=== PATIENT | female | born 1970 | race Caucasian/White ===

== ENCOUNTER 2017-08-24 12:30 | Day surgery (SDC) | payer OTHER ==
[2017-08-24 12:44] VITALS: BMI 22.8
[2017-08-24] MEDS ORDERED: LIDOCAINE HCL/PF 2% SDV 5ML VIAL ONE (13:56)
[2017-08-24] MEDS ORDERED: PROPOFOL 20 ML ONE (13:56)
[2017-08-24 14:49] VITALS: TEMP 97.7
[2017-08-24 16:15] VITALS: BP 116/91; PULSE 76
--- NOTE | 2017-08-28 18:44 | PATH ---
Surgical Pathology Report Patient Name: DILAN VINSON [facility]. Rec. #: [id number] /Age/Gender: 1970 (Age: 47) / F Account: [id number] Location: ASU-ENDOSCOPY Taken: 08/24/2017 Received: 08/27/2017 Reported: 08/28/2017 Physicians: Marcelo Saenz M.D. Specimen(s) Received BX RECTUM Clinical History Constipation, family history of colon cancer Proctitis, redundant colon Final Diagnosis RECTUM, BIOPSY: COLONIC MUCOSA WITH PROMINENT LYMPHOID AGGREGATE. Electronically Signed Rebeca Granda M.D. Gross Description Received in formalin, labeled "rectum" are 2 german, irregular portions of soft tissue measuring 0.2 and 0.3 cm. in greatest dimension. The specimens are submitted in toto in one cassette. 08/27/201708/27/2017
== END 2017-08-24 16:00 | disposition home or self-care (01) ==
LOC: JASU-ENDO 12:30
PROVIDERS: ATTEND Internal Medicine Gastroenterology
PROC: 0DBP8ZX Excision of Rectum, Via Natural or Artificial Opening Endoscopic, Diagnostic (ICD-10-PCS; principal; 2017-08-24 13:30)
DX: Z12.11 Encounter for screening for malignant neoplasm of colon (principal); Z80.0 Family history of malignant neoplasm of digestive organs; K64.8 Other hemorrhoids; K63.89 Other specified diseases of intestine; K62.89 Other specified diseases of anus and rectum
CPT/HCPCS: 84703; 88305-TC

== ENCOUNTER 2019-05-16 10:09 | Inpatient (IN) | payer OTHER ==
--- NOTE | 2019-05-16 11:26 | PDOC ---
History of Present Illness - General Chief Complaint: Psychiatric Stated Complaint: ANXIETY Time Seen by Provider: 05/16/19 10:38 History Source: Patient, Sibling Exam Limitations: No Limitations Past History - Past Medical History Allergies/Adverse Reactions: Allergies Allergy/AdvReac Type Severity Reaction Status Date / Time povidone-iodine Allergy Severe Rash Verified 08/24/17 14:04 [From Betadine] soap [From Betadine] Allergy Severe Rash Verified 08/24/17 14:04 diphenhydramine HCl Allergy Unknown Verified 08/24/17 14:04 [From Benadryl] carbamazepine [From Tegretol] Allergy STOMACH Verified 08/24/17 14:04 PAIN phenytoin sodium extended Allergy Rash Verified 08/24/17 14:04 [From Dilantin] Home Medications: Ambulatory Orders Divalproex [Depakote -] 250 mg PO HS 01/07/15 Nadolol 40 mg PO HS 01/07/15 Primidone [Mysoline] 250 mg PO BID 01/07/15 Cetirizine HCl [Zyrtec -] 10 mg PO HS 03/03/15 Ranitidine [Zantac -] 150 mg PO BID #30 tablet 05/29/16 Albuterol Sulfate [Proair Respiclick] 90 mcg IH PRN PRN 08/24/17 Famotidine [Pepcid -] 20 mg PO DAILY 08/24/17 Fluticasone Prop 0.05% Nasal [Flonase -] 1 - 2 spray NS BID 08/24/17 Wheat Dextrin [Benefiber] 1 each PO DAILY 08/24/17 Anemia: No Asthma: Yes Cancer: Yes (LEFT BREAST CANCER 10/2014) Cardiac Disorders: No CVA: No COPD: No CHF: No Dementia: No Diabetes: No GI Disorders: Yes (gerd) Disorders: No HTN: No Hypercholesterolemia: No Liver Disease: No Seizures: Yes Thyroid Disease: No - Surgical History Abdominal Surgery: No Appendectomy: No Cardiac Surgery: No Cholecystectomy: No Lung Surgery: No Neurologic Surgery: No Orthopedic Surgery: No - Immunization History Immunization Up to Date: Yes - Suicide/Smoking/Psychosocial Hx Smoking History: Never smoked Have you smoked in the past 12 months: No Information on smoking cessation initiated: No Hx Alcohol Use: No Drug/Substance Use Hx: No Substance Use Type: None Hx Substance Use Treatment: No *Physical Exam - Vital Signs Last Vital Signs Temp Pulse Resp BP Pulse Ox 98.4 F 75 18 154/96 100 05/16/19 10:11 05/16/19 10:11 05/16/19 10:11 05/16/19 10:11 05/16/19 10:11 - Physical Exam General Appearance: No: Apparent Distress Respiratory/Chest: positive: Lungs Clear, Normal Breath Sounds. negative: Respiratory Distress Cardiovascular: positive: Regular Rhythm, Regular Rate, S1, S2. negative: Murmur Gastrointestinal/Abdominal: positive: Normal Bowel Sounds, Soft. negative: Tender, Distended, Guarding, Rebound Neurologic: positive: Fully Oriented, Alert, Other (Quiet, withdrawn, looks away ) ED Treatment Course - LABORATORY CBC & Chemistry Diagram: 05/16/19 11:40 05/16/19 11:40 - RADIOLOGY Radiology Studies Ordered: Category Date Time Status HEAD CT WITHOUT CONTRAST [CT] Stat CT Scan 05/16/19 11:03 Ordered Medical Decision Making - Medical Decision Making 48 y/o F hx of legally blind since , seizure (on Mysoline and Depakote), L sided breast CA s/p lumpectomy, XRT and chemo (in remission since 2014), hypothyroidism, migraines (on Nadolol) presents with her sister due to hearing voices from last night. Per sister, patient has also been acting more paranoid today. Sister mentions that they recently moved from [place] last month and since then has noticed the patient has been quieter and not like her usual self. However, hallucinations were just noted last night. Denies prior psych hx. Patient lives with sister, brother and sister's on. Mother and father lives [facility]. Denies alcohol or drug use. Denies S/H ideation. Patient very quiet on exam and does not answer many questions. Mood disorder Plan: Labs, urine tox, CT head D/W Dr. Castañeda - will come see patient this afternoon 05/16/19 11:22 Labs reviewed TSH elevated (sister states she is already aware of this and Synthroid dose is pending readjustment by PCP) Utox shows +barbiturate likely as patient is on Mysoline CT head with no acute findings Case also d/w Dr. Finch, who is patient's neurologist - states patient has not had any readjustment in her meds for years and believes that is unlikely this is related to her medications; does not believe this is anything neurologically related; agrees with psych evaluation; of note, he does mention that patient has seemed a bit sad since her mother few years ago D/W sister - states no chance that patient could have overdosed on any of her medications as she checks herself and gives her the medication Sister (Latisha) - contact number [phone] Castañeda, who states he will come in around 5 PM to see patient 05/16/19 15:45 Patient pending evaluation by psych Signed out to BRIGITTE Dee 05/16/19 16:18 *DC/Admit/Observation/Transfer Diagnosis at time of Disposition: Hallucinations - Referrals - Patient Instructions - Post Discharge Activity
[2019-05-16 12:16] LABS: COCAINE, UR NEGATIVE ng/ml (CUTOFF=300); METHADONE, UR NEGATIVE ng/ml (CUTOFF=300); OPIATES, URI NEGATIVE ng/ml (CUTOFF=300); PHENCYCLIDINE,URINE NEGATIVE ng/ml (CUTOFF=25); URINE AMPHETAMINES NEGATIVE ng/ml (CUTOFF=500); URINE BENZODIAZEPINES NEGATIVE ng/ml (CUTOFF=200)
[2019-05-16 12:29] LABS: ALBUMIN 4.4 g/dl (3.4-5.0); BILIRUBIN,TOTAL 0.4 mg/dL (0.2-1); BLOOD UREA NITROGEN 12.4 mg/dL (7-18); CALCIUM 9.3 mg/dL (8.5-10.1); CREATININE 0.7 mg/dL (0.55-1.3); POTASSIUM 4.1 mmol/L (3.5-5.1); TOT PROT 8.3 g/dl (6.4-8.2); URINE BARBITURATES POSITIVE ng/ml (CUTOFF=200)
[2019-05-16 13:09] LABS: BASO % 0.6 % (0-2.0); EOS % 0.3 % (0-4.5); HEMATOCRIT 43.7 % (32.4-45.2); HEMOGLOBIN 14.9 GM/dL (10.7-15.3); LYMPH % 22.9 % (8-40); MCH 31.4 pg (25.7-33.7); MCHC 34.2 g/dl (32.0-36.0); MEAN CELL VOLUME 91.9 fl (80-96); MEAN PLT VOLUME 9.1 fl (7.5-11.1); MONO % 7.8 % (3.8-10.2); NEUT % 68.4 % (42.8-82.8); PLATELET COUNT 262 K/MM3 (134-434); RBC 4.76 M/mm3 (3.60-5.2); WHITE BLOOD COUNT 6.9 K/mm3 (4.0-10.0)
--- NOTE | 2019-05-16 14:24 | PDOC ---
*Physical Exam - Vital Signs Last Vital Signs Temp Pulse Resp BP Pulse Ox 98.4 F 75 18 154/96 100 05/16/19 10:11 05/16/19 10:11 05/16/19 10:11 05/16/19 10:11 05/16/19 10:11 - Physical Exam General Appearance: Yes: Nourished Neck: positive: Trachea midline Respiratory/Chest: positive: Lungs Clear, Normal Breath Sounds Cardiovascular: positive: Regular Rhythm, Regular Rate, S1, S2 Female Pelvic Exam: positive: normal external exam Gastrointestinal/Abdominal: positive: Normal Bowel Sounds, Flat, Soft Musculoskeletal: positive: Normal Inspection Extremity: positive: Normal Capillary Refill, Normal Inspection, Normal Range of Motion Integumentary: positive: Normal Color, Dry, Warm Neurologic: positive: Fully Oriented, Alert, Finger to Nose, Other (odd affect, resting tremor, finger to nose normal.) Heart Score/ECG Review #1 General ECG Interpretation: Sinus Rhythm, Normal Rate (70), Normal Intervals, No acute ischemic changes ED Treatment Course - LABORATORY CBC & Chemistry Diagram: 05/16/19 11:40 05/16/19 11:40 - ADDITIONAL ORDERS Additional order review: Laboratory Results 05/16/19 05/16/19 05/16/19 11:40 11:40 11:40 Sodium 139 Potassium 4.1 Chloride 102 Carbon Dioxide 29 Anion Gap 8 BUN 12.4 Creatinine 0.7 Est GFR (CKD-EPI)AfAm 117.09 Est GFR (CKD-EPI)NonAf 101.02 Random Glucose 82 Calcium 9.3 Total Bilirubin 0.4 AST 12 L ALT 24 Alkaline Phosphatase 80 Total Protein 8.3 H Albumin 4.4 TSH 4.18 H Salicylates Opiates Screen Negative Methadone Screen Negative Acetaminophen Barbiturate Screen Positive A* Phencyclidine Screen Negative Ur Amphetamines Screen Negative MDMA (Ecstasy) Screen Negative Benzodiazepines Screen Negative Cocaine Screen Negative U Marijuana (THC) Screen Negative 05/16/19 05/16/19 11:12 11:12 Sodium Potassium Chloride Carbon Dioxide Anion Gap BUN Creatinine Est GFR (CKD-EPI)AfAm Est GFR (CKD-EPI)NonAf Random Glucose Calcium Total Bilirubin AST ALT Alkaline Phosphatase Total Protein Albumin TSH Salicylates 2.0 L Opiates Screen Methadone Screen Acetaminophen < 5.0 L Barbiturate Screen Phencyclidine Screen Ur Amphetamines Screen MDMA (Ecstasy) Screen Benzodiazepines Screen Cocaine Screen U Marijuana (THC) Screen 05/16/19 11:40 RBC 4.76 MCV 91.9 MCHC 34.2 RDW 13.0 MPV 9.1 Neutrophils % 68.4 Lymphocytes % 22.9 Monocytes % 7.8 Eosinophils % 0.3 D Basophils % 0.6 Medical Decision Making - Medical Decision Making 05/16/19 14:20 48 yo F wtih ho epilepsy, brain injury related to , on depakote and phenbarb equivalent med, here with c/o hallucinations change to behavior. no recent medication doses. no overdose. denies thoughts of self harm and harm to others. no si no hi. no h;o prior psych diangosis. no h/o depression. no famliy ho schizophrenia or depression. pt is here with family who noted she is more withdrawn. hallucinations were auditory. hearing voices. no h/o prior hallucinations. on exam pt awake calm alert. lungs clear heart rrr no mrg abd soft nt nd nuero pt with baseline tremor, finger to nose normal. differential psychosis, brain mass ( ho breast ca ) electrolyte abnoramlity, ingestion, toxicity from depakote or phenobarb. 05/16/19 14:[address] fontana consulted. depakote and phenobarb levels pending. 05/16/19 14:49 d/w dr cruz. no recent med changes. ct head unchanged from prior. ua pending. u tox pos for phenobarbs. will add rpr, b12 and folate. *DC/Admit/Observation/Transfer Diagnosis at time of Disposition: Hallucinations, Altered mental status - Referrals Referrals: Dayan Land MD [Primary Care Provider] - - Patient Instructions - Post Discharge Activity
--- NOTE | 2019-05-16 16:24 | CONSULT ---
Consult - text type - Consultation Consultation Note: NEUROLOGY CONSULT GREATLY APPRECIATED: Events reviewed and discussed with Soila Leon PA. Polly is well-known to our service with Static encephalopathy CP); chronic, mild , hemiparesis,; Migraines, and Seizure disorder.. Last seen in office 02/17/19. This 48 yo RH woman's migraine headaches and seizure disorder are well controlled on nadolol 40, VPA ER 250, and primidone 250 BID. No change in meds x years PMHX: breast CA s/p chemo and RT, chronic tinnitus, thyroid goiter. Seen in ED and brought by her sister due to her self-reports of "hearing voices " last night. She is unable to recall what they were saying, but denies any thoughts to harm herself or others. She admits she recently moved into a new building last month with her sister and brother and has not been sleeping well due to hearing "footsteps" of neighbors. Lost her mother and lifetime caregiver about [address] (reviewed): Unchanged from recent MRI. Large chronic L occiptal encephalomalacia/arachnoid cyst confluent with lateral ventricle. Some L cerebral atrophy. Small R occipital encephalomalacia as well. B12= 454; TSH 4.18; VPA= 25.9 CURTIS: Cor reg. Neck supple. NEURO: Awake, alert, oriented x 3. Easily distractable with poor eye contact. ? Hallucinating. CNII-CNXII: Severe nystagmus L > R. Full castellanos. No facial. Motor: No drift or tremor. Decreased GUTIERREZ's. Strength normal. Reflexes normal. Plantars downgoing. Coordination: No FTN dystaxia. Sensation: Normal to vibration. Gait: deferred Impression: 1. Possible depression with psychotic features (strongly doubt this a manifestation of CP or seizures). 2. Seizure disorder 3. Migraine Headaches Suggest: Consider reducing nadolol to 20 mg qd Would then increase Depakote to 500 mg BID Continue Primidone 250 mg BID Await Psychiatry consultation. MRI of brain (C-) Thank you very much, Michael Finch MD
--- NOTE | 2019-05-16 17:08 | PDOC ---
*Physical Exam - Vital Signs Last Vital Signs Temp Pulse Resp BP Pulse Ox 98.4 F 75 18 154/96 100 05/16/19 10:11 05/16/19 10:11 05/16/19 10:11 05/16/19 10:11 05/16/19 10:11 - Physical Exam General Appearance: Yes: Appropriately Dressed Integumentary: positive: Warm Neurologic: positive: Alert ED Treatment Course - LABORATORY CBC & Chemistry Diagram: 05/16/19 11:40 05/16/19 11:40 - ADDITIONAL ORDERS Additional order review: Laboratory Results 05/16/19 05/16/19 05/16/19 14:00 11:40 11:40 Sodium Potassium Chloride Carbon Dioxide Anion Gap BUN Creatinine Est GFR (CKD-EPI)AfAm Est GFR (CKD-EPI)NonAf Random Glucose Calcium Total Bilirubin AST ALT Alkaline Phosphatase Total Protein Albumin Vitamin B12 Serum Folate TSH 4.18 H Salicylates Opiates Screen Negative Methadone Screen Negative Acetaminophen Barbiturate Screen Positive A* Valproic Acid 25.9 L Phencyclidine Screen Negative Ur Amphetamines Screen Negative MDMA (Ecstasy) Screen Negative Benzodiazepines Screen Negative Cocaine Screen Negative U Marijuana (THC) Screen Negative 05/16/19 05/16/19 05/16/19 11:40 11:12 11:12 Sodium 139 Potassium 4.1 Chloride 102 Carbon Dioxide 29 Anion Gap 8 BUN 12.4 Creatinine 0.7 Est GFR (CKD-EPI)AfAm 117.09 Est GFR (CKD-EPI)NonAf 101.02 Random Glucose 82 Calcium 9.3 Total Bilirubin 0.4 AST 12 L ALT 24 Alkaline Phosphatase 80 Total Protein 8.3 H Albumin 4.4 Vitamin B12 454 Serum Folate 31 H TSH Salicylates 2.0 L Opiates Screen Methadone Screen Acetaminophen < 5.0 L Barbiturate Screen Valproic Acid Phencyclidine Screen Ur Amphetamines Screen MDMA (Ecstasy) Screen Benzodiazepines Screen Cocaine Screen U Marijuana (THC) Screen 05/16/19 11:40 RBC 4.76 MCV 91.9 MCHC 34.2 RDW 13.0 MPV 9.1 Neutrophils % 68.4 Lymphocytes % 22.9 Monocytes % 7.8 Eosinophils % 0.3 D Basophils % 0.6 Medical Decision Making - Medical Decision Making 05/16/19 18:58 PATIENT Signed out to Maren Sanchez admitted under Dr. bhardwaj. Patient seen by Dr. florian ( see note) and Dr. Finch (see note) *DC/Admit/Observation/Transfer Diagnosis at time of Disposition: Hallucinations Altered mental status Qualifiers: Altered mental status type: delirium Qualified Code(s): R41.0 - Disorientation , unspecified - Discharge Dispostion Decision to Admit order: Yes - Referrals Referrals: Dayan Bhardwaj MD [Primary Care Provider] - - Patient Instructions - Post Discharge Activity
[2019-05-16] MEDS ORDERED: OLANZapine 2.5 MG TABLET PO ONE (17:33)
--- NOTE | 2019-05-16 17:40 | CON.PSY ---
Psychiatry Consult Chief Complaint: 48 Ye5a old female brought to ER by siblings for an acute onset of Auditory Hallucinations and mild paranoid ideas> she hasno history of any previous Psychg Illness. Recently family moved tos a new Home. Has been sleeping poorly. History of Breast CA and Migraine Head aches. Symptoms: reports: Hallucinations, Paranoia - Previous Psychiatric Treatment Outpatient: None Inpatient: None - Previous Substance Abuse Treatment Outpatient: None Inpatient: None - Current Medications Current Medications: Active Medications Olanzapine (Zyprexa -) 2.5 mg PO ONCE ONE Stop: 05/16/19 17:34 - Allergies Allergies: Allergies Allergy/AdvReac Type Severity Reaction Status Date / Time povidone-iodine Allergy Severe Rash Verified 08/24/17 14:04 [From Betadine] soap [From Betadine] Allergy Severe Rash Verified 08/24/17 14:04 diphenhydramine HCl Allergy Unknown Verified 08/24/17 14:04 [From Benadryl] carbamazepine [From Tegretol] Allergy STOMACH Verified 08/24/17 14:04 PAIN phenytoin sodium extended Allergy Rash Verified 08/24/17 14:04 [From Dilantin] - Current Living Status Usual Living Arrangement: With Significant Other - Current Mental Status Evaluation Appearance: Well Groomed Attitude: Cooperative - Affect Affect: Constrictive Appropriateness: Appropriate to Content - Mood Mood: Depressed - Speech/Language Expressive: Coherent - Psychomotor Activity Psychomotor Activity: Normal - Thought Process Thought Process: Intact - Thought Content Hallucinations: Present Type: Auditory Type: Persectory - Self Perception Self Perception: No Impairment - Cognition Attention: Alert Orientation: Time Memory, Immediate Recall: Intact Memory, Short Term: 3/3 Memory, Remote with Promptin/3 - Concentration Serial Sevens Intact: Yes Simple Calculations Intact: Yes - Abstraction Proverb Interpretation: Intact - Insight Insight: Intact - Impulse Control Impulse Control: Good Control - Suicidal Ideation Suicidal Ideation: No Assessment/Plan 1) Start Zyprexa 5 mg po hs for hallucinations and Paranoia.
[2019-05-16] MEDS ORDERED: OLANZapine 5 MG TABLET PO STA (17:41)
[2019-05-16] MEDS ORDERED: OLANZapine 5 MG TABLET PO ONE (17:43)
[2019-05-16] MEDS ORDERED: OLANZapine 10 MG TABLET ONE (19:06)
[2019-05-16 21:42] LABS: EPI CELLS 1.3 /HPF (0-5/HPF); HYALINE CASTS 0 /lpf (0-8); URINE APPEARANCE CLEAR; URINE BACTERIA 3.9 /hpf (NEGATIVE); URINE BILIRUBIN NEGATIVE (NEGATIVE); URINE COLOR YELLOW; URINE GLUCOSE (UA) NEGATIVE (NEGATIVE); URINE KETONE NEGATIVE (NEGATIVE); URINE LEUK ESTERASE TRACE (NEGATIVE); URINE NITRITE NEGATIVE (NEGATIVE); URINE PROTEIN NEGATIVE (NEGATIVE); URINE RBC 2 /hpf (0-4); URINE UROBILINOGEN 0.2 mg/dL (0.2-1.0); URINE WBC 3 /hpf (0-5)
[2019-05-16] MEDS ORDERED: ALBUTEROL SO4 8 GM HFA INHALER IH PRN (21:50)
--- NOTE | 2019-05-16 21:59 | HP ---
CHIEF COMPLAINT: Auditory hallucinations PCP: Dr. Christina HISTORY OF PRESENT ILLNESS: 48 year old female with PMHX of epilepsy, brain injury related to , Asthma, GERD, hypothyroidism, legal blind since and h/o breast ca; brought to ER by siblings for acute onset of Auditory Hallucinations ( hearing voices). Sister states that they recently moved from [place] last month and noticed the patient has been quieter and not sleeping as much. However, hallucinations started last night and this morning. Family denies any previous history of psychiatric issues. Patient very quiet on exam and does not answer many question and does not want to discuss hallucination or the episodes. ER course was notable for: (1) Head CT:Chronic b/l cerebral ischemic changes with significant ex vacuo dilatation of the occipital horn of left lateral ventricles (2) Neurology and psychiatric follow up, given Zyprexa 5 mg, Depakote dosage increased Recent Travel: No PAST MEDICAL HISTORY: LEFT BREAST CANCER 10/2014, epilepsy, brain injury related to , Asthma, GERD, hypothyroidism, legal blind since PAST SURGICAL HISTORY: left breast lumpectomy Social History: Smoking: No Alcohol: No Drugs: No Family History: Mother ( ; lung ca, colon ca, HTN) Father ( alive; prostate Ca) Allergies: povidone-iodine [From Betadine] Allergy (Severe, Verified 08/24/17 14:04) Rash soap [From Betadine] Allergy (Severe, Verified 08/24/17 14:04) Rash diphenhydramine HCl [From Benadryl] Allergy (Unknown, Verified 08/24/17 14:04) states she was told as a child she was allergic. undersigned explained this could have been from the dye and she should discuss this allergy further with pmd. 02/15/15. carbamazepine [From Tegretol] Allergy (Verified 08/24/17 14:04) STOMACH PAIN phenytoin sodium extended [From Dilantin] Allergy (Verified 08/24/17 14:04) Rash HOME MEDICATIONS: Home Medications Medication Instructions Recorded Divalproex [Depakote -] 250 mg PO HS 01/07/15 Nadolol 40 mg PO HS 01/07/15 Primidone [Mysoline] 250 mg PO BID 01/07/15 Cetirizine HCl [Zyrtec -] 10 mg PO HS 05/27/15 Ranitidine [Zantac -] 150 mg PO BID #30 tablet 05/29/16 Albuterol Sulfate [Proair 90 mcg IH PRN PRN 08/24/17 Respiclick] Famotidine [Pepcid -] 20 mg PO DAILY 08/24/17 Fluticasone Prop 0.05% Nasal 1 - 2 spray NS BID 08/24/17 [Flonase -] Wheat Dextrin [Benefiber] 1 each PO DAILY 08/24/17 REVIEW OF SYSTEMS CONSTITUTIONAL: Absent: fever, chills, diaphoresis, generalized weakness, malaise, loss of appetite, weight change HEENT: + hearing voices CARDIOVASCULAR: Absent: chest pain, syncope, palpitations, irregular heart rate , lightheadedness, peripheral edema RESPIRATORY: Absent: cough, shortness of breath, dyspnea with exertion, orthopnea, wheezing, stridor, hemoptysis GASTROINTESTINAL: Absent: abdominal pain, abdominal distension, nausea, vomiting , diarrhea, constipation, melena, hematochezia NEUROLOGIC: Absent: headache, focal weakness or paresthesias, dizziness, unsteady gait, seizure, mental status changes, bladder or bowel incontinence PSYCHIATRIC: + Auditory hallucinations. PHYSICAL EXAMINATION Vital Signs - 24 hr 05/16/19 05/16/19 10:11 19:00 Temperature 98.4 F Pulse Rate 75 Pulse Rate [ 65 Radial] Respiratory 18 18 Rate Blood Pressure 154/96 Blood Pressure 133/86 [Left Arm] O2 Sat by Pulse 100 96 Oximetry (%) General: awake, NAD HEENT: NC/AT, no JVD Respiratory: Lungs Clear, Normal Breath Sounds Cardiovascular: Regular Rhythm, Regular Rate, S1, S2. negative: Murmur Abdominal: Normal Bowel Sounds, Soft. Neurologic: Alert, withdrawn, quite Laboratory Results - last 24 hr 05/16/19 05/16/19 05/16/19 11:12 11:12 11:40 WBC 6.9 RBC 4.76 Hgb 14.9 Hct 43.7 MCV 91.9 MCH 31.4 MCHC 34.2 RDW 13.0 Plt Count 262 D MPV 9.1 Absolute Neuts (auto) 4.7 Neutrophils % 68.4 Lymphocytes % 22.9 Monocytes % 7.8 Eosinophils % 0.3 D Basophils % 0.6 Nucleated RBC % 0 Sodium Potassium Chloride Carbon Dioxide Anion Gap BUN Creatinine Est GFR (CKD-EPI)AfAm Est GFR (CKD-EPI)NonAf Random Glucose Calcium Total Bilirubin AST ALT Alkaline Phosphatase Total Protein Albumin Vitamin B12 Serum Folate TSH Salicylates 2.0 L Opiates Screen Methadone Screen Acetaminophen < 5.0 L Barbiturate Screen Valproic Acid Phencyclidine Screen Ur Amphetamines Screen MDMA (Ecstasy) Screen Benzodiazepines Screen Cocaine Screen U Marijuana (THC) Screen 05/16/19 05/16/19 05/16/19 11:40 11:40 11:40 WBC RBC Hgb Hct MCV MCH MCHC RDW Plt Count MPV Absolute Neuts (auto) Neutrophils % Lymphocytes % Monocytes % Eosinophils % Basophils % Nucleated RBC % Sodium 139 Potassium 4.1 Chloride 102 Carbon Dioxide 29 Anion Gap 8 BUN 12.4 Creatinine 0.7 Est GFR (CKD-EPI)AfAm 117.09 Est GFR (CKD-EPI)NonAf 101.02 Random Glucose 82 Calcium 9.3 Total Bilirubin 0.4 AST 12 L ALT 24 Alkaline Phosphatase 80 Total Protein 8.3 H Albumin 4.4 Vitamin B12 454 Serum Folate 31 H TSH 4.18 H Salicylates Opiates Screen Negative Methadone Screen Negative Acetaminophen Barbiturate Screen Positive A* Valproic Acid Phencyclidine Screen Negative Ur Amphetamines Screen Negative MDMA (Ecstasy) Screen Negative Benzodiazepines Screen Negative Cocaine Screen Negative U Marijuana (THC) Screen Negative 05/16/19 14:00 WBC RBC Hgb Hct MCV MCH MCHC RDW Plt Count MPV Absolute Neuts (auto) Neutrophils % Lymphocytes % Monocytes % Eosinophils % Basophils % Nucleated RBC % Sodium Potassium Chloride Carbon Dioxide Anion Gap BUN Creatinine Est GFR (CKD-EPI)AfAm Est GFR (CKD-EPI)NonAf Random Glucose Calcium Total Bilirubin AST ALT Alkaline Phosphatase Total Protein Albumin Vitamin B12 Serum Folate TSH Salicylates Opiates Screen Methadone Screen Acetaminophen Barbiturate Screen Valproic Acid 25.9 L Phencyclidine Screen Ur Amphetamines Screen MDMA (Ecstasy) Screen Benzodiazepines Screen Cocaine Screen U Marijuana (THC) Screen ASSESSMENT/PLAN: 48 year old female with PMHX of epilepsy, brain injury related to , Asthma , GERD, hypothyroidism, legal blind since and h/o breast ca; brought to ER by siblings for acute onset of Auditory Hallucinations ( hearing voices). Sister states that they recently moved from [place] last month and noticed the patient has been quieter and not sleeping as much. However, hallucinations started last night and this morning. Family denies any previous history of psychiatric issues. Patient very quiet on exam and does not answer many question and does not want to discuss hallucination or the episodes. # hallucinations and Paranoia In ED - TSH elevated family states PCP adjusting meds - Utox shows +barbiturate likely as patient is on Mysoline - CT head with no acute findings * Neurology follow up noted - MRI of brain * Psych follow up - Start Zyprexa 5 mg po hs - Monitor for safety/fall precaution #Seizures - increase Depakote to 500 mg BID per neurology - Continue Primidone 250 mg BID #HTN - reducing Nadolol to 20 mg qd # GERD - Continue with Pepcid 20 mg daily # Asthma - Albuterol Sulfate 90 mcg IH PRN # Hypothyroidism - levothyroxine increase to 50 mcg Problem List - Problem (1) Hallucinations Code(s): R44.3 - HALLUCINATIONS, UNSPECIFIED (2) Paranoid Code(s): F22 - DELUSIONAL DISORDERS (3) Seizure Code(s): R56.9 - UNSPECIFIED CONVULSIONS (4) HTN (hypertension) Code(s): I10 - ESSENTIAL (PRIMARY) HYPERTENSION (5) GERD (gastroesophageal reflux disease) Code(s): K21.9 - GASTRO-ESOPHAGEAL REFLUX DISEASE WITHOUT ESOPHAGITIS (6) Asthma Code(s): J45.909 - UNSPECIFIED ASTHMA, UNCOMPLICATED (7) Hypothyroid Code(s): E03.9 - HYPOTHYROIDISM, UNSPECIFIED Visit type - Emergency Visit Emergency Visit: Yes ED Registration Date: 05/16/19 Care time: The patient presented to the Emergency Department on the above date and was hospitalized for further evaluation of their emergent condition. - New Patient This patient is new to me today: Yes Date on this admission: 05/16/19 - Critical Care Critical Care patient: No
[2019-05-16] MEDS: DIVALPROEX SODIUM 500 MG TABLET E.C. PO SCH (22:29)
[2019-05-16] MEDS: OLANZapine 5 MG TABLET PO SCH (22:30)
[2019-05-16] MEDS: PRIMIDONE 250 MG TABLET PO SCH (22:30)
[2019-05-17] MEDS: LEVOTHYROXINE NA 50 MCG TABLET (FP) PO SCH (06:30)
[2019-05-17] MEDS ORDERED: PT OWN MED DRAWER 7, Y5N ONE (09:35)
[2019-05-17] MEDS: PRIMIDONE 250 MG TABLET PO SCH ×2 (09:48→22:30)
[2019-05-17] MEDS: NADOLOL 20 MG TABLET (FP) PO SCH (09:48)
[2019-05-17] MEDS: RANITIDINE HCL 150 MG TABLET (FP) PO SCH (09:48)
[2019-05-17] MEDS: DIVALPROEX SODIUM 500 MG TABLET E.C. PO SCH ×2 (09:59→22:29)
--- NOTE | 2019-05-17 12:05 | PN ---
Progress Note, Physician History of Present Illness: comfortable chart reviewed quiet not speaking much denies pain calm - Current Medication List Current Medications: Active Medications Albuterol Sulfate (Ventolin Hfa Inhaler -) 2 puff IH Q4H PRN PRN Reason: ASTHMA Divalproex Sodium (Depakote -) 500 mg PO BID [facility] Last Admin: 05/17/19 09:59 Dose: Not Given Levothyroxine Sodium (Synthroid -) 50 mcg PO DAILY@0700 [facility] Last Admin: 05/17/19 06:30 Dose: 50 mcg Nadolol (Corgard -) 20 mg PO DAILY [facility] Last Admin: 05/17/19 09:48 Dose: 20 mg Olanzapine (Zyprexa -) 5 mg PO HS [facility] Last Admin: 05/16/19 22:30 Dose: 5 mg Primidone (Mysoline -) 250 mg PO BID [facility] Last Admin: 05/17/19 09:48 Dose: 250 mg Ranitidine HCl (Zantac -) 150 mg PO DAILY [facility] Last Admin: 05/17/19 09:48 Dose: 150 mg - Objective Vital Signs: Vital Signs Temperature 98.4 F 05/17/19 07:15 Pulse Rate 67 05/17/19 07:15 Respiratory Rate 20 05/17/19 07:15 Blood Pressure 124/87 05/17/19 07:15 O2 Sat by Pulse Oximetry (%) 98 05/16/19 21:48 Constitutional: Yes: No Distress, Calm Eyes: Yes: Conjunctiva Clear Neck: Yes: Supple Cardiovascular: Yes: Regular Rate and Rhythm Respiratory: Yes: CTA Bilaterally Gastrointestinal: Yes: Soft Neurological: Yes: Alert Psychiatric: Yes: Alert Labs: CBC, BMP 05/16/19 11:40 05/16/19 11:40 Problem List - Problems (1) HTN (hypertension) Code(s): I10 - ESSENTIAL (PRIMARY) HYPERTENSION (2) Hallucinations Code(s): R44.3 - HALLUCINATIONS, UNSPECIFIED (3) Paranoid Code(s): F22 - DELUSIONAL DISORDERS (4) Seizure Code(s): R56.9 - UNSPECIFIED CONVULSIONS Assessment/Plan continue present care close monitoring psych following as well as euro daily oob- chair will follow
--- NOTE | 2019-05-17 15:19 | EKG ---
Test Reason : Blood Pressure : / mmHG Vent. Rate : 070 BPM Atrial Rate : 070 BPM P-R Int : 128 ms QRS Dur : 082 ms QT Int : 422 ms P-R-T Axes : 011 062 057 degrees QTc Int : 455 ms NORMAL SINUS RHYTHM NORMAL ECG WHEN COMPARED WITH ECG OF 26-MAY-2016 20:20, NO SIGNIFICANT CHANGE WAS FOUND Confirmed by MD Carlos Daniel ([id number]) on 05/17/2019 3:18:58 PM Referred By: Confirmed By:Sergo Carlos MD
--- NOTE | 2019-05-17 15:48 | PN ---
Progress Note (short form) - Note Progress Note: Patient seen [facility] Psych follow up; MSD: alert, pleasant, appears better, slept well. reports that voices are beter but still hearing them. NOt suicidal or Homicidal . REC: Continue with Pojotiw2ia po hs for hallucunations.
[2019-05-17] MEDS: OLANZapine 5 MG TABLET PO SCH (22:29)
[2019-05-18] MEDS: LEVOTHYROXINE NA 50 MCG TABLET (FP) PO SCH (06:15)
[2019-05-18] MEDS: RANITIDINE HCL 150 MG TABLET (FP) PO SCH (10:01)
[2019-05-18] MEDS: DIVALPROEX SODIUM 500 MG TABLET E.C. PO SCH ×2 (10:01→21:36)
[2019-05-18] MEDS: PRIMIDONE 250 MG TABLET PO SCH ×2 (10:02→21:36)
[2019-05-18] MEDS: NADOLOL 20 MG TABLET (FP) PO SCH (10:02)
--- NOTE | 2019-05-18 11:03 | PN ---
Progress Note, Physician History of Present Illness: comfortable quiet not speaking much denies pain calm walks in [address] still hears voices - Current Medication List Current Medications: Active Medications Albuterol Sulfate (Ventolin Hfa Inhaler -) 2 puff IH Q4H PRN PRN Reason: ASTHMA Divalproex Sodium (Depakote -) 500 mg PO BID [facility] Last Admin: 05/18/19 10:01 Dose: 500 mg Levothyroxine Sodium (Synthroid -) 50 mcg PO DAILY@0700 [facility] Last Admin: 05/18/19 06:15 Dose: 50 mcg Nadolol (Corgard -) 20 mg PO DAILY [facility] Last Admin: 05/18/19 10:02 Dose: 20 mg Olanzapine (Zyprexa -) 5 mg PO HS [facility] Last Admin: 05/17/19 22:29 Dose: 5 mg Primidone (Mysoline -) 250 mg PO BID [facility] Last Admin: 05/18/19 10:02 Dose: 250 mg Ranitidine HCl (Zantac -) 150 mg PO DAILY [facility] Last Admin: 05/18/19 10:01 Dose: 150 mg - Objective Vital Signs: Vital Signs Temperature 98.2 F 05/18/19 07:45 Pulse Rate 77 05/18/19 07:45 Respiratory Rate 20 05/18/19 07:45 Blood Pressure 139/94 05/18/19 07:45 O2 Sat by Pulse Oximetry (%) 98 05/17/19 21:00 Constitutional: Yes: No Distress, Calm Eyes: Yes: Conjunctiva Clear Neck: Yes: Supple Respiratory: Yes: CTA Bilaterally Gastrointestinal: Yes: Soft Edema: No Neurological: Yes: Alert Psychiatric: Yes: Alert Labs: CBC, BMP 05/16/19 11:40 05/16/19 11:40 Problem List - Problems (1) HTN (hypertension) Code(s): I10 - ESSENTIAL (PRIMARY) HYPERTENSION (2) Hallucinations Code(s): R44.3 - HALLUCINATIONS, UNSPECIFIED (3) Paranoid Code(s): F22 - DELUSIONAL DISORDERS (4) Seizure Code(s): R56.9 - UNSPECIFIED CONVULSIONS Assessment/Plan continue present care close monitoring psych following as well as Neuro daily oob- chair will follow continue Zyprexa
[2019-05-18] MEDS: ACETAMINOPHEN 325 MG TABLET (FP) PO PRN (11:55)
[2019-05-18] MEDS ORDERED: ALPRAZolam 0.25 MG TABLET PO ONE (13:15)
[2019-05-18] MEDS: LORazepam 1 MG TABLET PO ONE ×2 (20:13→20:22)
[2019-05-18] MEDS ORDERED: HALOPERIDOL LACTATE 5 MG/ML IM ONE (21:05)
[2019-05-18] MEDS ORDERED: LORazepam 2 MG/ML SDV VIAL ONE (21:28)
[2019-05-18] MEDS ORDERED: LORazepam 2 MG/ML SDV VIAL IM ONE (21:30)
[2019-05-18] MEDS: OLANZapine 10 MG TABLET PO SCH (21:36)
[2019-05-19] MEDS: LEVOTHYROXINE NA 50 MCG TABLET (FP) PO SCH (06:33)
--- NOTE | 2019-05-19 08:56 | PN ---
Progress Note (short form) - Note Progress Note: Pt seen/ examined events noted Discussed with Dr Rachel Castañeda today MRI noted sleeping comfortably Vital Signs Temp 98.0 F 05/18/19 21:00 Pulse 74 05/18/19 21:00 Resp 18 05/18/19 21:00 BP 130/90 05/18/19 21:00 Pulse Ox 100 05/18/19 21:00 Intake & Output 05/18/19 05/18/19 05/19/19 11:59 23:59 11:59 Intake Total 300 100 Balance 300 100 Intake: Oral 300 100 Other: Voiding Method Toilet Toilet # Unmeasured Voids Void 1 1 0 Active Medications Acetaminophen (Tylenol -) 650 mg PO Q6H PRN PRN Reason: PAIN LEVEL 1-5 Last Admin: 05/18/19 11:55 Dose: 650 mg Albuterol Sulfate (Ventolin Hfa Inhaler -) 2 puff IH Q4H PRN PRN Reason: ASTHMA Divalproex Sodium (Depakote -) 500 mg PO BID [facility] Last Admin: 05/18/19 21:36 Dose: 500 mg Levothyroxine Sodium (Synthroid -) 50 mcg PO DAILY@0700 [facility] Last Admin: 05/19/19 06:33 Dose: Not Given Nadolol (Corgard -) 20 mg PO DAILY [facility] Last Admin: 05/18/19 10:02 Dose: 20 mg Olanzapine (Zyprexa -) 10 mg PO HS [facility] Last Admin: 05/18/19 21:36 Dose: 10 mg Primidone (Mysoline -) 250 mg PO BID [facility] Last Admin: 05/18/19 21:36 Dose: 250 mg Ranitidine HCl (Zantac -) 150 mg PO DAILY [facility] Last Admin: 05/18/19 10:01 Dose: 150 mg CBC, BMP 05/16/19 11:40 05/16/19 11:40 lungs- clear cvs- s1, s2 rrr Assessment/Plan continue present care close monitoring psych following may need in patient Psych Neuro to follow will follow Problem List - Problems (1) HTN (hypertension) Code(s): I10 - ESSENTIAL (PRIMARY) HYPERTENSION (2) Hallucinations Code(s): R44.3 - HALLUCINATIONS, UNSPECIFIED (3) Paranoid Code(s): F22 - DELUSIONAL DISORDERS (4) Seizure Code(s): R56.9 - UNSPECIFIED CONVULSIONS
[2019-05-19] MEDS ORDERED: SUMAtriptan SUCCINATE 50 MG TABLET PO PRN (10:17)
--- NOTE | 2019-05-19 10:21 | PN ---
Progress Note (short form) - Note Progress Note: NEUROLOGY PROGRESS: Events reviewed and discussed. Psychiatry consult read and appreciated. Now admitted to 8W. Nadolol reduced to 20 mg daily, depakote increased to 500 mg BID. Recently started on Zyprexa 5 mg HS and increased to 10 mg HS. Reporting still hearing voices, but less frequently. Feels very groggy this AM. Headache yesterday with minimal relief with Tylenol. MRI of brain C- (reviewed): Unchanged from MRI of 09/14/19. 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 Also old chronic smaller R parietoocciptal infarct. Old B/L frontal infarcts. Chronic deep cerebral microvascular changes. VPA= 25.9 ug% Phenobarbital= 14 ug% BP 130s/90s NEURO: Awakens to name, but eyes remain closed. Logical, coherent thoughts but mumbling. States "At home, No hospital" 2019. Symmetric grasps. Reflexes normal. Impression: Depression with psychotic features Seizure Disorder Migraine Headaches Suggest: Continue Depakote 500 mg BID for migraines and mood stabilization Continue Nadolol 20 mg po daily for migraines Psyche Rx as per Dr. Castañeda. Avoid oversedation. Add Sumatriptain 50-100 mg as needed for breakthrough headache Thank you very much, Michael Finch MD
[2019-05-19] MEDS ORDERED: PT OWN MED DRAWER 7, Y5N ONE ×7 (10:34→21:41)
[2019-05-19] MEDS: RANITIDINE HCL 150 MG TABLET (FP) PO SCH (10:59)
[2019-05-19] MEDS: DIVALPROEX SODIUM 500 MG TABLET E.C. PO SCH ×2 (10:59→21:43)
[2019-05-19] MEDS: NADOLOL 20 MG TABLET (FP) PO SCH (11:45)
[2019-05-19] MEDS: PRIMIDONE 250 MG TABLET PO SCH ×2 (11:45→21:43)
--- NOTE | 2019-05-19 13:59 | PN ---
Progress Note (short form) - Note Progress Note: Patients Psychosis continues to persists, still agitated and unable to respond to Psych Meds. Spoke to family and discussed next plan of Possible In patient Psych ademission. Case discussed with as well. Plan; 1) Continue with 1:1. 2)Continue with psych m3eds.
[2019-05-19] MEDS: OLANZapine 10 MG TABLET PO SCH (21:43)
[2019-05-20] MEDS: LEVOTHYROXINE NA 50 MCG TABLET (FP) PO SCH (06:21)
--- NOTE | 2019-05-20 09:49 | PN ---
Progress Note (short form) - Note Progress Note: patient seen and examined overall condition same Lying in bed slept okay Not talking much Vital Signs Temp 97.7 F 05/20/19 06:00 Pulse 66 05/20/19 06:00 Resp 20 05/20/19 06:00 BP 128/85 05/20/19 06:00 Pulse Ox 100 05/19/19 21:00 Intake & Output 05/19/19 05/19/19 05/20/19 11:59 23:59 11:59 Intake Total 300 Balance 300 Intake: Oral 300 Other: Voiding Method Toilet # Unmeasured Voids Void 0 1 Bowel Movement No No Active Medications Acetaminophen (Tylenol -) 650 mg PO Q6H PRN PRN Reason: PAIN LEVEL 1-5 Last Admin: 05/18/19 11:55 Dose: 650 mg Albuterol Sulfate (Ventolin Hfa Inhaler -) 2 puff IH Q4H PRN PRN Reason: ASTHMA Divalproex Sodium (Depakote -) 500 mg PO BID [facility] Last Admin: 05/19/19 21:43 Dose: 500 mg Levothyroxine Sodium (Synthroid -) 50 mcg PO DAILY@0700 [facility] Last Admin: 05/20/19 06:21 Dose: 50 mcg Nadolol (Corgard -) 20 mg PO DAILY [facility] Last Admin: 05/19/19 11:45 Dose: 20 mg Olanzapine (Zyprexa -) 10 mg PO [facility] Last Admin: 05/19/19 21:43 Dose: 10 mg Primidone (Mysoline -) 250 mg PO BID [facility] Last Admin: 05/19/19 21:43 Dose: 250 mg Ranitidine HCl (Zantac -) 150 mg PO DAILY [facility] Last Admin: 05/18/19 10:01 Dose: 150 mg Sumatriptan Succinate (Imitrex -) 50 mg PO PRN PRN PRN Reason: HEADACHE CBC, BMP 05/16/19 11:40 05/16/19 11:40 Physical exam Constitutional: Yes: No Distress, Calm Eyes: Yes: Conjunctiva Clear Neck: Yes: Supple Respiratory: Yes: CTA Bilaterally Gastrointestinal: Yes: Soft Edema: No Assessment/Plan continue present care close monitoring psych following as well as Neuro daily oob- chair will follow continue Zyprexa PSYCH to follow today Likely will need inpatient psych treatment Will discuss with family also. Problem List - Problems (1) HTN (hypertension) Code(s): I10 - ESSENTIAL (PRIMARY) HYPERTENSION (2) Hallucinations Code(s): R44.3 - HALLUCINATIONS, UNSPECIFIED (3) Paranoid Code(s): F22 - DELUSIONAL DISORDERS (4) Seizure Code(s): R56.9 - UNSPECIFIED CONVULSIONS
[2019-05-20] MEDS ORDERED: PT OWN MED DRAWER 7, Y5N ONE (10:50)
[2019-05-20] MEDS: PRIMIDONE 250 MG TABLET PO SCH ×2 (11:00→22:38)
[2019-05-20] MEDS: NADOLOL 20 MG TABLET (FP) PO SCH (11:00)
[2019-05-20] MEDS: RANITIDINE HCL 150 MG TABLET (FP) PO SCH (11:00)
[2019-05-20] MEDS: DIVALPROEX SODIUM 500 MG TABLET E.C. PO SCH ×2 (11:00→22:36)
[2019-05-20] MEDS ORDERED: SUMAtriptan SUCCINATE 50 MG TABLET PO PRN (14:52)
[2019-05-20] MEDS: OLANZapine 10 MG TABLET PO SCH (22:38)
[2019-05-21] MEDS: LEVOTHYROXINE NA 50 MCG TABLET (FP) PO SCH (06:43)
--- NOTE | 2019-05-21 10:04 | PN ---
Progress Note (short form) - Note Progress Note: pt seen/ examined awake comfortable denies pain not taking much Sister reports pt went into deep depression since they moved out of old house and into new home Vital Signs Temp 97.9 F 05/21/19 05:14 Pulse 68 05/21/19 05:14 Resp 16 05/21/19 05:14 BP 138/80 05/21/19 05:14 Pulse Ox 100 05/20/19 20:55 Intake & Output 05/20/19 05/20/19 05/21/19 11:59 23:59 11:59 Intake Total 400 250 Balance 400 250 Intake: Oral 400 250 Other: Voiding Method Toilet Toilet # Unmeasured Voids Void 2 Bowel Movement No No Active Medications Acetaminophen (Tylenol -) 650 mg PO Q6H PRN PRN Reason: PAIN LEVEL 1-5 Last Admin: 05/18/19 11:55 Dose: 650 mg Albuterol Sulfate (Ventolin Hfa Inhaler -) 2 puff IH Q4H PRN PRN Reason: ASTHMA Divalproex Sodium (Depakote -) 500 mg PO BID [facility] Last Admin: 05/20/19 22:36 Dose: 500 mg Levothyroxine Sodium (Synthroid -) 50 mcg PO DAILY@0700 [facility] Last Admin: 05/21/19 06:43 Dose: 50 mcg Nadolol (Corgard -) 20 mg PO DAILY [facility] Last Admin: 05/20/19 11:00 Dose: 20 mg Olanzapine (Zyprexa -) 10 mg PO HS [facility] Last Admin: 05/20/19 22:38 Dose: 10 mg Primidone (Mysoline -) 250 mg PO BID [facility] Last Admin: 05/20/19 22:38 Dose: 250 mg Ranitidine HCl (Zantac -) 150 mg PO DAILY [facility] Last Admin: 05/20/19 11:00 Dose: 150 mg Sumatriptan Succinate (Imitrex -) 50 mg PO Q6H PRN PRN Reason: HEADACHES CBC, BMP 05/16/19 11:40 05/16/19 11:40 Physical exam Constitutional: Yes: No Distress, Calm Eyes: Yes: Conjunctiva Clear Neck: Yes: Supple Respiratory: Yes: CTA Bilaterally Gastrointestinal: Yes: Soft Edema: No neuro--awake Psych--calm Assessment/Plan continue present care close monitoring psych following as well as Neuro daily oob- chair will follow continue Zyprexa PSYCH to follow today clinically better Will follow Problem List - Problems (1) HTN (hypertension) Code(s): I10 - ESSENTIAL (PRIMARY) HYPERTENSION (2) Hallucinations Code(s): R44.3 - HALLUCINATIONS, UNSPECIFIED (3) Paranoid Code(s): F22 - DELUSIONAL DISORDERS (4) Seizure Code(s): R56.9 - UNSPECIFIED CONVULSIONS
[2019-05-21] MEDS ORDERED: PT OWN MED DRAWER 7, Y5N ONE (10:14)
[2019-05-21] MEDS: DIVALPROEX SODIUM 500 MG TABLET E.C. PO SCH ×2 (10:17→22:04)
[2019-05-21] MEDS: NADOLOL 20 MG TABLET (FP) PO SCH (10:17)
[2019-05-21] MEDS: RANITIDINE HCL 150 MG TABLET (FP) PO SCH (10:17)
[2019-05-21] MEDS: PRIMIDONE 250 MG TABLET PO SCH ×2 (10:17→22:04)
--- NOTE | 2019-05-21 11:20 | PN ---
Progress Note (short form) - Note Progress Note: Psych follow up; Patient seen and case discussed with staff and family. Staff and family report significant improvement in hallucinations and paranoia. Patient appears more aware and seems less angry and agitated. Increased reality testing as well. Denies any paranoid or persecutory delusions. Not suicidal or Homicidal. Plan; 1) d/c 1:1. 2) Reduce Zyprexa to 5mg po hs only. 3) Possible discharge HOme tomorrow.
[2019-05-21] MEDS ORDERED: OLANZapine 5 MG TABLET PO SCH (22:00)
[2019-05-22] MEDS: LEVOTHYROXINE NA 50 MCG TABLET (FP) PO SCH (06:37)
--- NOTE | 2019-05-22 09:46 | DS ---
Physical Examination Vital Signs: Vital Signs Temperature 97.8 F 05/22/19 07:09 Pulse Rate 72 05/22/19 07:09 Respiratory Rate 20 05/22/19 07:09 Blood Pressure 126/89 05/22/19 07:09 O2 Sat by Pulse Oximetry (%) 100 05/21/19 21:00 Findings/Remarks: patient seen and examined calm Denies pain Comfortable When I discussed about going home---patient became anxious Constitutional: Yes: No Distress, Anxious Neck: Yes: Supple Cardiovascular: Yes: Regular Rate and Rhythm Respiratory: Yes: CTA Bilaterally Gastrointestinal: Yes: Soft Edema: No Neurological: Yes: Alert Labs: CBC, BMP 05/16/19 11:40 05/16/19 11:40 Discharge Summary Reason For Visit: HALLUCINATIONS,AMS Current Active Problems Altered mental status (Acute) Asthma (Acute) GERD (gastroesophageal reflux disease) (Acute) HTN (hypertension) (Acute) Hallucinations (Acute) Hypothyroid (Acute) Paranoid (Acute) Seizure (Acute) Hospital Course: admitted for hallucinations/ psychosis Got better Psych follow-up noted Patient somewhat anxious----going home Psych to follow Discharge home versus inpatient psych Condition: Guarded - Instructions - Home Medications Comprehensive Discharge Medication List: Ambulatory Orders Primidone [Mysoline] 250 mg PO BID 01/07/15 Cetirizine HCl [Zyrtec -] 10 mg PO HS 03/03/15 Albuterol Sulfate [Proair Respiclick] 90 mcg IH PRN PRN 08/24/17 Famotidine [Pepcid -] 20 mg PO DAILY 08/24/17 Fluticasone Prop 0.05% Nasal [Flonase -] 1 - 2 spray NS BID 08/24/17 Cholecalciferol (Vitamin D3) [Vitamin D3] 1,000 unit PO DAILY 05/16/19 Divalproex [Depakote -] 500 mg PO HS 30 Days #30 tablet.ec 05/22/19 Levothyroxine [Synthroid -] 50 mcg PO DAILY@0700 #30 tablet 05/22/19 Nadolol [Corgard -] 20 mg PO DAILY 30 Days #30 tablet 05/22/19 Olanzapine [Zyprexa -] 5 mg PO HS #30 tablet 05/22/19 Sumatriptan Succinate [Imitrex -] 50 mg PO Q6H PRN tablet 05/22/19
--- NOTE | 2019-05-22 10:24 | PN ---
Progress Note (short form) - Note Progress Note: NEUROLOGY PROGRESS: Events reviewed and discussed with MICHAEL Rizvi. Psychiatry consult read and appreciated. Case discussed with sister Latisha over the phone. Latisha notes that her sister is "more like herself now." Latisha notes that this is most likely attributed to Polly having to leave her childhood home she shared with her mom before she passed. Reports pt is very nauseous and vomiting, "similar to last time depakote was increased." Last evening Zyprexa reduced to 5 mg HS and patient reports she slept well. Depakote reduced to 500 mg HS from 500 mg BID and pt reports she was able to eat breakfast with decreased nausea. NEURO: Found awake, sitting in chair. OX to [place] 2019. Mild static encephalopathy. Somewhat irritable and tearful throughout exam. CNII-CNXII: Coarse nystagmus L > R. Motor: Intermittent myoclonic jerks with grasp tremor in hands. No cogwheeling. Reflexes normal. Gait: Ambulating independently down hallway. Impression: Depression with psychotic features Seizure Disorder Migraine Headaches Suggest: Continue Nadolol 20 mg po qd for migraines Continue Depakote 500 mg HS for both migraines and seizure Continue primidone 250 mg BID for seizures Psyche Rx as per Dr. Castañeda. Consider that psychotic features are due to underlying depression and treat as such. Patient pending D/C to home. Neuro f/u as out patient. Thank you very much, Michael Finch MD
[2019-05-22] MEDS: RANITIDINE HCL 150 MG TABLET (FP) PO SCH (10:42)
[2019-05-22] MEDS: NADOLOL 20 MG TABLET (FP) PO SCH (10:43)
[2019-05-22] MEDS: PRIMIDONE 250 MG TABLET PO SCH ×2 (10:43→21:02)
--- NOTE | 2019-05-22 13:50 | PN ---
Progress Note (short form) - Note Progress Note: Patient seen for Psych evaluation, case discussed with Patients family and staff. There appears to be a reescalation of Acute Hallucinatiuons and Paranoia and agitation. Patient has been pacing up and down, crying, refusing to take meds. MS: alert, appears semi catatonic, unable to engage in any conversation. Apperas very preoccupied and acting in a Paranoid manner. Poor insight and judgment. REC: Transfer to In Patient Psych unit for further stabilization pf Patients Psychosis.
[2019-05-22] MEDS: ACETAMINOPHEN 325 MG TABLET (FP) PO PRN (19:54)
[2019-05-22] MEDS ORDERED: PT OWN MED DRAWER 7, Y5N ONE (20:10)
[2019-05-22] MEDS: DIVALPROEX SODIUM 500 MG TABLET E.C. PO SCH (21:02)
[2019-05-22] MEDS: OLANZapine 10 MG TABLET PO SCH (21:02)
[2019-05-23] MEDS: LEVOTHYROXINE NA 50 MCG TABLET (FP) PO SCH (06:11)
[2019-05-23] MEDS: PRIMIDONE 250 MG TABLET PO SCH ×2 (09:58→22:40)
[2019-05-23] MEDS: NADOLOL 20 MG TABLET (FP) PO SCH (09:58)
[2019-05-23] MEDS: RANITIDINE HCL 150 MG TABLET (FP) PO SCH (09:58)
--- NOTE | 2019-05-23 14:23 | PN ---
Progress Note (short form) - Note Progress Note: awake. family at bedside pt not speaking ! Vital Signs Temp 99 F 05/23/19 10:00 Pulse 87 05/23/19 10:00 Resp 20 05/23/19 10:00 BP 150/99 05/23/19 10:00 Pulse Ox 96 05/23/19 09:00 Intake & Output 05/22/19 05/23/19 05/23/19 23:59 11:59 23:59 Intake Total 400 Balance 400 Intake: Oral 400 Other: Voiding Method Toilet Toilet # Unmeasured Voids Void 1 1 Bowel Movement Yes # Bowel Movements 2 Active Medications Acetaminophen (Tylenol -) 650 mg PO Q6H PRN PRN Reason: PAIN LEVEL 1-5 Last Admin: 05/22/19 19:54 Dose: 650 mg Albuterol Sulfate (Ventolin Hfa Inhaler -) 2 puff IH Q4H PRN PRN Reason: ASTHMA Divalproex Sodium (Depakote -) 500 mg PO [facility] Last Admin: 05/22/19 21:02 Dose: 500 mg Levothyroxine Sodium (Synthroid -) 50 mcg PO DAILY@0700 [facility] Last Admin: 05/23/19 06:11 Dose: 50 mcg Nadolol (Corgard -) 20 mg PO DAILY [facility] Last Admin: 05/23/19 09:58 Dose: 20 mg Olanzapine (Zyprexa -) 10 mg PO [facility] Last Admin: 05/22/19 21:02 Dose: 10 mg Primidone (Mysoline -) 250 mg PO BID [facility] Last Admin: 05/23/19 09:58 Dose: 250 mg Ranitidine HCl (Zantac -) 150 mg PO DAILY [facility] Last Admin: 05/23/19 09:58 Dose: 150 mg Sumatriptan Succinate (Imitrex -) 50 mg PO Q6H PRN PRN Reason: HEADACHES CBC, BMP 05/16/19 11:40 05/16/19 11:40 Physical exam Constitutional: Yes: No Distress, quiet Eyes: Yes: Conjunctiva Clear Neck: Yes: Supple Respiratory: Yes: CTA Bilaterally Gastrointestinal: Yes: Soft Edema: No neuro--awake Psych--calm Assessment/Plan discussed with family continue present care awaiting transfer to In patient psych unit will follow Problem List - Problems (1) HTN (hypertension) Code(s): I10 - ESSENTIAL (PRIMARY) HYPERTENSION (2) Hallucinations Code(s): R44.3 - HALLUCINATIONS, UNSPECIFIED (3) Paranoid Code(s): F22 - DELUSIONAL DISORDERS (4) Seizure Code(s): R56.9 - UNSPECIFIED CONVULSIONS
[2019-05-23 14:25] VITALS: BMI 23.8
[2019-05-23] MEDS ORDERED: PT OWN MED DRAWER 7, Y5N ONE ×2 (17:20→21:29)
[2019-05-23] MEDS: DIVALPROEX SODIUM 500 MG TABLET E.C. PO SCH (22:40)
[2019-05-23] MEDS: OLANZapine 10 MG TABLET PO SCH (22:41)
[2019-05-24] MEDS: LEVOTHYROXINE NA 50 MCG TABLET (FP) PO SCH (06:04)
--- NOTE | 2019-05-24 08:24 | PN ---
Progress Note (short form) - Note Progress Note: Events noted pt is crying,sobbing not talking Vital Signs - 24 hr 05/23/19 05/23/19 05/23/19 09:00 10:00 16:50 Temperature 99 F 98.9 F Pulse Rate 87 84 Respiratory 20 20 20 Rate Blood Pressure 150/99 143/104 H O2 Sat by Pulse 96 Oximetry (%) 05/23/19 05/23/19 05/23/19 17:15 21:00 22:00 Temperature 98.6 F Pulse Rate 96 H 99 H Respiratory 20 20 Rate Blood Pressure 130/90 136/94 O2 Sat by Pulse 97 Oximetry (%) Current Medications Generic Name Dose Route Start Last Admin Trade Name Freq PRN Reason Stop Dose Admin Acetaminophen 650 mg 05/18/19 11:43 05/22/19 19:54 Tylenol - PO 650 mg Q6H PRN Administration PAIN LEVEL 1-5 Albuterol Sulfate 2 puff 05/16/19 21:50 Ventolin Hfa Inhaler - IH Q4H PRN ASTHMA Divalproex Sodium 500 mg 05/21/19 22:00 05/23/19 22:40 Depakote - PO 500 mg HS [facility] Administration Levothyroxine Sodium 50 mcg 05/17/19 07:00 05/24/19 06:04 Synthroid - PO 50 mcg DAILY@0700 [facility] Administration Nadolol 20 mg 05/17/19 10:00 05/23/19 09:58 Corgard - PO 20 mg DAILY [facility] Administration Olanzapine 10 mg 05/22/19 22:00 05/23/19 22:41 Zyprexa - PO 10 mg HS [facility] Administration Primidone 250 mg 05/16/19 22:00 05/23/19 22:40 Mysoline - PO 250 mg BID [facility] Administration Ranitidine HCl 150 mg 05/17/19 10:00 05/23/19 09:58 Zantac - PO 150 mg DAILY [facility] Administration Sumatriptan Succinate 50 mg 05/20/19 14:52 Imitrex - PO Q6H PRN HEADACHES Physical exam Constitutional: Yes: No Distress, quiet Eyes: Yes: Conjunctiva Clear Neck: Yes: Supple Respiratory: Yes: CTA Bilaterally Gastrointestinal: Yes: Soft Edema: No neuro--awake Psych--crying, depressed Assessment/Plan psych eval and Neurology evaluations noted awaiting transfer to In patient psych unit continue with meds ct and MRI brain noted-- no new changes Problem List - Problems (1) Altered mental status Code(s): R41.82 - ALTERED MENTAL STATUS, UNSPECIFIED Qualifiers: Altered mental status type: delirium Qualified Code(s): R41.0 - Disorientation, unspecified (2) HTN (hypertension) Code(s): I10 - ESSENTIAL (PRIMARY) HYPERTENSION (3) Hallucinations Code(s): R44.3 - HALLUCINATIONS, UNSPECIFIED (4) Hypothyroid Code(s): E03.9 - HYPOTHYROIDISM, UNSPECIFIED (5) Paranoid Code(s): F22 - DELUSIONAL DISORDERS (6) Seizure Code(s): R56.9 - UNSPECIFIED CONVULSIONS
[2019-05-24] MEDS: RANITIDINE HCL 150 MG TABLET (FP) PO SCH (09:15)
[2019-05-24] MEDS: PRIMIDONE 250 MG TABLET PO SCH ×2 (09:16→22:42)
[2019-05-24] MEDS: NADOLOL 20 MG TABLET (FP) PO SCH (09:16)
[2019-05-24] MEDS ORDERED: PT OWN MED DRAWER 7, Y5N ONE (21:01)
[2019-05-24] MEDS: DIVALPROEX SODIUM 500 MG TABLET E.C. PO SCH (21:37)
[2019-05-24] MEDS: OLANZapine 10 MG TABLET PO SCH (22:42)
[2019-05-25] MEDS: LEVOTHYROXINE NA 50 MCG TABLET (FP) PO SCH (06:06)
--- NOTE | 2019-05-25 08:00 | PN ---
Progress Note (short form) - Note Progress Note: Events noted pt is crying,sobbing not talking Vital Signs - 24 hr 05/24/19 05/24/19 05/25/19 20:18 21:00 06:38 Temperature 97.4 F L 97.5 F L Pulse Rate 85 83 Respiratory 20 20 Rate Blood Pressure 123/70 141/91 O2 Sat by Pulse 99 Oximetry (%) 05/25/19 05/25/19 05/25/19 09:00 10:00 17:02 Temperature 98.1 F 98.1 F Pulse Rate 99 H 84 Respiratory 20 20 Rate Blood Pressure 151/92 140/83 O2 Sat by Pulse 99 Oximetry (%) Current Medications Generic Name Dose Route Start Last Admin Trade Name Freq PRN Reason Stop Dose Admin Acetaminophen 650 mg 05/18/19 11:43 05/22/19 19:54 Tylenol - PO 650 mg Q6H PRN Administration PAIN LEVEL 1-5 Albuterol Sulfate 2 puff 05/16/19 21:50 Ventolin Hfa Inhaler - IH Q4H PRN ASTHMA Divalproex Sodium 500 mg 05/21/19 22:00 05/24/19 21:37 Depakote - PO 500 mg HS [facility] Administration Levothyroxine Sodium 50 mcg 05/17/19 07:00 05/25/19 06:06 Synthroid - PO 50 mcg DAILY@0700 [facility] Administration Nadolol 20 mg 05/17/19 10:00 05/25/19 09:01 Corgard - PO 20 mg DAILY [facility] Administration Olanzapine 10 mg 05/22/19 22:00 05/24/19 22:42 Zyprexa - PO 10 mg HS [facility] Administration Primidone 250 mg 05/16/19 22:00 05/25/19 09:02 Mysoline - PO 250 mg BID [facility] Administration Ranitidine HCl 150 mg 05/17/19 10:00 05/25/19 09:01 Zantac - PO 150 mg DAILY [facility] Administration Sumatriptan Succinate 50 mg 05/20/19 14:52 Imitrex - PO Q6H PRN HEADACHES Physical exam Constitutional: Yes: No Distress, quiet Eyes: Yes: Conjunctiva Clear Neck: Yes: Supple Respiratory: Yes: CTA Bilaterally Gastrointestinal: Yes: Soft Edema: No neuro--awake Psych--crying, depressed Assessment/Plan psych eval and Neurology evaluations noted awaiting transfer to In patient psych unit continue with meds ct and MRI brain noted-- no new changes Problem List - Problems (1) Altered mental status Code(s): R41.82 - ALTERED MENTAL STATUS, UNSPECIFIED Qualifiers: Altered mental status type: delirium Qualified Code(s): R41.0 - Disorientation, unspecified (2) HTN (hypertension) Code(s): I10 - ESSENTIAL (PRIMARY) HYPERTENSION (3) Hallucinations Code(s): R44.3 - HALLUCINATIONS, UNSPECIFIED (4) Hypothyroid Code(s): E03.9 - HYPOTHYROIDISM, UNSPECIFIED (5) Paranoid Code(s): F22 - DELUSIONAL DISORDERS (6) Seizure Code(s): R56.9 - UNSPECIFIED CONVULSIONS
[2019-05-25] MEDS: NADOLOL 20 MG TABLET (FP) PO SCH (09:01)
[2019-05-25] MEDS: RANITIDINE HCL 150 MG TABLET (FP) PO SCH (09:01)
[2019-05-25] MEDS: PRIMIDONE 250 MG TABLET PO SCH ×2 (09:02→21:36)
[2019-05-25] MEDS ORDERED: PT OWN MED DRAWER 7, Y5N ONE ×2 (14:25→21:10)
[2019-05-25] MEDS: DIVALPROEX SODIUM 500 MG TABLET E.C. PO SCH (21:36)
[2019-05-25] MEDS: OLANZapine 10 MG TABLET PO SCH (21:36)
[2019-05-25] MEDS ORDERED: MELATONIN 5 MG TABLETS PO ONE (23:57)
[2019-05-26] MEDS: LEVOTHYROXINE NA 50 MCG TABLET (FP) PO SCH (06:20)
[2019-05-26] MEDS ORDERED: PT OWN MED DRAWER 7, Y5N ONE ×2 (10:09→21:58)
[2019-05-26] MEDS: RANITIDINE HCL 150 MG TABLET (FP) PO SCH (10:16)
[2019-05-26] MEDS: NADOLOL 20 MG TABLET (FP) PO SCH (10:17)
[2019-05-26] MEDS: PRIMIDONE 250 MG TABLET PO SCH ×2 (10:17→22:29)
--- NOTE | 2019-05-26 10:18 | PN ---
Progress Note (short form) - Note Progress Note: pt seen/ examined calm not talking staff reports was having auditory / visual hallucinations last night-- Vital Signs Temp 98.5 F 05/26/19 10:00 Pulse 93 H 05/26/19 10:00 Resp 16 05/26/19 10:00 BP 142/83 05/26/19 10:00 Pulse Ox 99 05/25/19 21:00 Intake & Output 05/25/19 05/25/19 05/26/19 11:59 23:59 11:59 Intake Total 80 350 350 Balance 80 350 350 Intake: Oral 300 350 Oral Supplement 80 50 Other: Voiding Method Toilet Toilet # Unmeasured Voids Void 1 1 1 Bowel Movement No Active Medications Acetaminophen (Tylenol -) 650 mg PO Q6H PRN PRN Reason: PAIN LEVEL 1-5 Last Admin: 05/22/19 19:54 Dose: 650 mg Albuterol Sulfate (Ventolin Hfa Inhaler -) 2 puff IH Q4H PRN PRN Reason: ASTHMA Divalproex Sodium (Depakote -) 500 mg PO [facility] Last Admin: 05/25/19 21:36 Dose: 500 mg Levothyroxine Sodium (Synthroid -) 50 mcg PO DAILY@0700 [facility] Last Admin: 05/26/19 06:20 Dose: 50 mcg Nadolol (Corgard -) 20 mg PO DAILY [facility] Last Admin: 05/26/19 10:17 Dose: 20 mg Olanzapine (Zyprexa -) 10 mg PO [facility] Last Admin: 05/25/19 21:36 Dose: 10 mg Primidone (Mysoline -) 250 mg PO BID [facility] Last Admin: 05/26/19 10:17 Dose: 250 mg Ranitidine HCl (Zantac -) 150 mg PO DAILY [facility] Last Admin: 05/26/19 10:16 Dose: 150 mg Sumatriptan Succinate (Imitrex -) 50 mg PO Q6H PRN PRN Reason: HEADACHES CBC, BMP 05/16/19 11:40 05/16/19 11:40 Physical exam Constitutional: Yes: No Distress, quiet Eyes: Yes: Conjunctiva Clear Neck: Yes: Supple Respiratory: Yes: CTA Bilaterally Gastrointestinal: Yes: Soft Edema: No neuro--awake Psych--calm Assessment/Plan condition same Discussed with nursing staff no medical issues-- explaining psych issues continue present care awaiting transfer to In patient psych unit will follow Problem List - Problems (1) HTN (hypertension) Code(s): I10 - ESSENTIAL (PRIMARY) HYPERTENSION (2) Hallucinations Code(s): R44.3 - HALLUCINATIONS, UNSPECIFIED (3) Paranoid Code(s): F22 - DELUSIONAL DISORDERS (4) Seizure Code(s): R56.9 - UNSPECIFIED CONVULSIONS
[2019-05-26] MEDS ORDERED: QUEtiapine FUMARATE 25 MG TABLET (FP) ONE (21:58)
[2019-05-26] MEDS ORDERED: QUEtiapine FUMARATE 50 MG TABLET PO SCH (22:00)
[2019-05-26] MEDS: OLANZapine 10 MG TABLET PO SCH (22:29)
[2019-05-27] MEDS: LEVOTHYROXINE NA 50 MCG TABLET (FP) PO SCH (06:21)
--- NOTE | 2019-05-27 10:55 | PN ---
Progress Note (short form) - Note Progress Note: pt is calm paranoid Vital Signs - 24 hr 05/26/19 05/26/19 05/26/19 15:34 21:00 22:00 Temperature 98.7 F 99.0 F Pulse Rate 77 86 Respiratory 18 16 Rate Blood Pressure 135/70 138/90 O2 Sat by Pulse 98 Oximetry (%) Current Medications Generic Name Dose Route Start Last Admin Trade Name Freq PRN Reason Stop Dose Admin Acetaminophen 650 mg 05/18/19 11:43 05/22/19 19:54 Tylenol - PO 650 mg Q6H PRN Administration PAIN LEVEL 1-5 Albuterol Sulfate 2 puff 05/16/19 21:50 Ventolin Hfa Inhaler - IH Q4H PRN ASTHMA Levothyroxine Sodium 50 mcg 05/17/19 07:00 05/27/19 06:21 Synthroid - PO 50 mcg DAILY@0700 [facility] Administration Nadolol 20 mg 05/17/19 10:00 05/26/19 10:17 Corgard - PO 20 mg DAILY [facility] Administration Olanzapine 10 mg 05/22/19 22:00 05/26/19 22:29 Zyprexa - PO 10 mg HS [facility] Administration Primidone 250 mg 05/16/19 22:00 05/26/19 22:29 Mysoline - PO 250 mg BID [facility] Administration Quetiapine Fumarate 50 mg 05/26/19 22:00 05/26/19 22:29 Seroquel - PO 50 mg HS [facility] Administration Ranitidine HCl 150 mg 05/17/19 10:00 05/26/19 10:16 Zantac - PO 150 mg DAILY [facility] Administration Sumatriptan Succinate 50 mg 05/20/19 14:52 Imitrex - PO Q6H PRN HEADACHES Physical exam Constitutional: Yes: No Distress, quiet Eyes: Yes: Conjunctiva Clear Neck: Yes: Supple Respiratory: Yes: CTA Bilaterally Gastrointestinal: Yes: Soft Edema: No neuro--awake Psych--crying, depressed Assessment/Plan psych eval and Neurology evaluations noted awaiting transfer to In patient psych unit continue with meds ct and MRI brain noted-- no new changes Problem List - Problems (1) Altered mental status Code(s): R41.82 - ALTERED MENTAL STATUS, UNSPECIFIED Qualifiers: Altered mental status type: delirium Qualified Code(s): R41.0 - Disorientation, unspecified (2) HTN (hypertension) Code(s): I10 - ESSENTIAL (PRIMARY) HYPERTENSION (3) Hallucinations Code(s): R44.3 - HALLUCINATIONS, UNSPECIFIED (4) Hypothyroid Code(s): E03.9 - HYPOTHYROIDISM, UNSPECIFIED (5) Paranoid Code(s): F22 - DELUSIONAL DISORDERS (6) Seizure Code(s): R56.9 - UNSPECIFIED CONVULSIONS
[2019-05-27] MEDS ORDERED: PT OWN MED DRAWER 7, Y5N ONE ×2 (13:41→21:09)
[2019-05-27] MEDS: NADOLOL 20 MG TABLET (FP) PO SCH (13:44)
[2019-05-27] MEDS: RANITIDINE HCL 150 MG TABLET (FP) PO SCH (13:44)
[2019-05-27] MEDS: PRIMIDONE 250 MG TABLET PO SCH ×2 (13:44→21:24)
--- NOTE | 2019-05-27 18:51 | PN ---
Progress Note (short form) - Note Progress Note: Patient apparantly was better with family and seemed appropriate with staff and family. However she began displaying catatonic Started yelling and screaming and appear to be Psychotic like behaviour. Family reports she had been crying most of the DAy. REC: Patient still needs Psych In Patient unit to stabilize Patients mental status. @) will add an antidepressant medication.
[2019-05-27] MEDS: OLANZapine 10 MG TABLET PO SCH (21:24)
[2019-05-28] MEDS: LEVOTHYROXINE NA 50 MCG TABLET (FP) PO SCH (06:11)
[2019-05-28] MEDS ORDERED: PT OWN MED DRAWER 7, Y5N ONE ×2 (09:19→19:57)
[2019-05-28] MEDS: RANITIDINE HCL 150 MG TABLET (FP) PO SCH (09:24)
[2019-05-28] MEDS: CITALOPRAM HYDROBROMIDE 20 MG TABLET (FP) PO SCH (09:24)
[2019-05-28] MEDS: NADOLOL 20 MG TABLET (FP) PO SCH (09:24)
[2019-05-28] MEDS: PRIMIDONE 250 MG TABLET PO SCH ×2 (09:24→22:26)
--- NOTE | 2019-05-28 11:14 | PN ---
Progress Note (short form) - Note Progress Note: pt was walking around the halls today-- anxious, crying paranoid Vital Signs - 24 hr 05/27/19 05/27/19 05/27/19 13:26 21:00 22:00 Temperature 97.5 F L Pulse Rate 79 81 Respiratory 18 18 Rate Blood Pressure 132/78 130/87 O2 Sat by Pulse 98 Oximetry (%) 05/28/19 06:00 Temperature 98.5 F Pulse Rate 81 Respiratory 18 Rate Blood Pressure 139/92 O2 Sat by Pulse Oximetry (%) Current Medications Generic Name Dose Route Start Last Admin Trade Name Freq PRN Reason Stop Dose Admin Acetaminophen 650 mg 05/18/19 11:43 05/22/19 19:54 Tylenol - PO 650 mg Q6H PRN Administration PAIN LEVEL 1-5 Albuterol Sulfate 2 puff 05/16/19 21:50 Ventolin Hfa Inhaler - IH Q4H PRN ASTHMA Citalopram Hydrobromide 20 mg 05/28/19 10:00 05/28/19 09:24 Celexa - PO 20 mg DAILY [facility] Administration Levothyroxine Sodium 50 mcg 05/17/19 07:00 05/28/19 06:11 Synthroid - PO 50 mcg DAILY@0700 [facility] Administration Nadolol 20 mg 05/17/19 10:00 05/28/19 09:24 Corgard - PO 20 mg DAILY [facility] Administration Olanzapine 10 mg 05/22/19 22:00 05/27/19 21:24 Zyprexa - PO 10 mg HS [facility] Administration Primidone 250 mg 05/16/19 22:00 05/28/19 09:24 Mysoline - PO 250 mg BID [facility] Administration Ranitidine HCl 150 mg 05/17/19 10:00 05/28/19 09:24 Zantac - PO 150 mg DAILY [facility] Administration Sumatriptan Succinate 50 mg 05/20/19 14:52 Imitrex - PO Q6H PRN HEADACHES Physical exam Constitutional: Yes: No Distress, quiet Eyes: Yes: Conjunctiva Clear Neck: Yes: Supple Respiratory: Yes: CTA Bilaterally Gastrointestinal: Yes: Soft Edema: No neuro--awake Psych--crying, depressed Assessment/Plan psych eval and Neurology evaluations noted celexa addes awaiting transfer to In patient psych unit continue with meds ct and MRI brain noted-- no new changes Pt has h/o Static encephalopathy Cerebral palsy, seizure disorder-- last episode about 30 years ago as per family and pt has not been on meds for this, she has h/o breast CA s/p chemo and Radiation--this is not an active issue She has hypothyroidism which is controlled with synthroid This episode of hallucinations, paranoia, psychosis is psychiatric She is cleared from Medical side She needs inpatient psychiatric facility for her mental health Problem List - Problems (1) Altered mental status Code(s): R41.82 - ALTERED MENTAL STATUS, UNSPECIFIED Qualifiers: Altered mental status type: delirium Qualified Code(s): R41.0 - Disorientation, unspecified (2) HTN (hypertension) Code(s): I10 - ESSENTIAL (PRIMARY) HYPERTENSION (3) Hallucinations Code(s): R44.3 - HALLUCINATIONS, UNSPECIFIED (4) Hypothyroid Code(s): E03.9 - HYPOTHYROIDISM, UNSPECIFIED (5) Paranoid Code(s): F22 - DELUSIONAL DISORDERS (6) Seizure Code(s): R56.9 - UNSPECIFIED CONVULSIONS
[2019-05-28] MEDS: OLANZapine 10 MG TABLET PO SCH (22:26)
[2019-05-29] MEDS: LEVOTHYROXINE NA 50 MCG TABLET (FP) PO SCH (07:31)
[2019-05-29] MEDS ORDERED: PT OWN MED DRAWER 7, Y5N ONE ×2 (11:16→21:39)
[2019-05-29] MEDS: CITALOPRAM HYDROBROMIDE 20 MG TABLET (FP) PO SCH (11:27)
[2019-05-29] MEDS: RANITIDINE HCL 150 MG TABLET (FP) PO SCH (11:27)
[2019-05-29] MEDS: PRIMIDONE 250 MG TABLET PO SCH ×2 (11:28→22:01)
[2019-05-29] MEDS: NADOLOL 20 MG TABLET (FP) PO SCH (11:28)
--- NOTE | 2019-05-29 11:34 | PN ---
Progress Note (short form) - Note Progress Note: pt is in a catatonic state she is eating well per [employer] no distress Vital Signs - 24 hr 05/28/19 05/28/19 05/28/19 15:00 17:55 18:36 Temperature 98 F 98.2 F 98.2 F Pulse Rate 75 77 77 Respiratory 18 20 20 Rate Blood Pressure 133/71 128/85 128/85 O2 Sat by Pulse Oximetry (%) 05/28/19 05/28/19 05/29/19 20:02 21:00 10:00 Temperature 98.7 F 98.3 F Pulse Rate 76 81 Respiratory 20 18 Rate Blood Pressure 145/93 136/87 O2 Sat by Pulse 97 Oximetry (%) Current Medications Generic Name Dose Route Start Last Admin Trade Name Freq PRN Reason Stop Dose Admin Acetaminophen 650 mg 05/18/19 11:43 05/22/19 19:54 Tylenol - PO 650 mg Q6H PRN Administration PAIN LEVEL 1-5 Albuterol Sulfate 2 puff 05/16/19 21:50 Ventolin Hfa Inhaler - IH Q4H PRN ASTHMA Citalopram Hydrobromide 20 mg 05/28/19 10:00 05/29/19 11:27 Celexa - PO 20 mg DAILY [facility] Administration Levothyroxine Sodium 50 mcg 05/17/19 07:00 05/29/19 07:31 Synthroid - PO 50 mcg DAILY@0700 [facility] Administration Nadolol 20 mg 05/17/19 10:00 05/29/19 11:28 Corgard - PO 20 mg DAILY [facility] Administration Olanzapine 10 mg 05/22/19 22:00 05/28/19 22:26 Zyprexa - PO 10 mg HS [facility] Administration Primidone 250 mg 05/16/19 22:00 05/29/19 11:28 Mysoline - PO 250 mg BID [facility] Administration Ranitidine HCl 150 mg 05/17/19 10:00 05/29/19 11:27 Zantac - PO 150 mg DAILY [facility] Administration Sumatriptan Succinate 50 mg 05/20/19 14:52 Imitrex - PO Q6H PRN HEADACHES Physical exam Constitutional: Yes: No Distress, quiet Eyes: Yes: Conjunctiva Clear Neck: Yes: Supple Respiratory: Yes: CTA Bilaterally Gastrointestinal: Yes: Soft Edema: No neuro--awake Psych--staring, not talking , depressed Assessment/Plan psych eval and Neurology evaluations noted kedar walker awaiting transfer to In patient psych unit continue with meds ct and MRI brain noted-- no new changes Pt has h/o Static encephalopathy Cerebral palsy, seizure disorder-- last episode about 30 years ago as per family - on Primidone - STABLE she has h/o breast CA s/p chemo and Radiation--this is not an active issue She has hypothyroidism which is controlled with synthroid This episode of hallucinations, paranoia, psychosis is psychiatric She is cleared from Medical side She needs inpatient psychiatric facility for her mental health Pt is on constant supervision for elopement Problem List - Problems (1) Altered mental status Code(s): R41.82 - ALTERED MENTAL STATUS, UNSPECIFIED Qualifiers: Altered mental status type: delirium Qualified Code(s): R41.0 - Disorientation, unspecified (2) HTN (hypertension) Code(s): I10 - ESSENTIAL (PRIMARY) HYPERTENSION (3) Hallucinations Code(s): R44.3 - HALLUCINATIONS, UNSPECIFIED (4) Hypothyroid Code(s): E03.9 - HYPOTHYROIDISM, UNSPECIFIED (5) Paranoid Code(s): F22 - DELUSIONAL DISORDERS (6) Seizure Code(s): R56.9 - UNSPECIFIED CONVULSIONS
[2019-05-29] MEDS: OLANZapine 10 MG TABLET PO SCH (22:01)
[2019-05-30] MEDS: LEVOTHYROXINE NA 50 MCG TABLET (FP) PO SCH (06:04)
--- NOTE | 2019-05-30 09:57 | PN ---
Progress Note (short form) - Note Progress Note: pt seen/ examined all f/u noted discussed with nursing staff/ case sealer also pt sitting in chair no distress quiet but not speaking- Vital Signs Temp 97.7 F 05/30/19 05:51 Pulse 75 05/30/19 05:51 Resp 18 05/30/19 05:51 BP 126/85 05/30/19 05:51 Pulse Ox 95 05/29/19 21:00 Intake & Output 05/29/19 05/29/19 05/30/19 11:59 23:59 11:59 Intake Total 360 Balance 360 Intake: Oral 360 Other: Voiding Method Toilet Toilet # Unmeasured Voids Void 2 1 1 Bowel Movement No Weight Measurement Method Standing Scale Active Medications Acetaminophen (Tylenol -) 650 mg PO Q6H PRN PRN Reason: PAIN LEVEL 1-5 Last Admin: 05/22/19 19:54 Dose: 650 mg Albuterol Sulfate (Ventolin Hfa Inhaler -) 2 puff IH Q4H PRN PRN Reason: ASTHMA Citalopram Hydrobromide (Celexa -) 20 mg PO DAILY [facility] Last Admin: 05/29/19 11:27 Dose: 20 mg Levothyroxine Sodium (Synthroid -) 50 mcg PO DAILY@0700 [facility] Last Admin: 05/30/19 06:04 Dose: 50 mcg Nadolol (Corgard -) 20 mg PO DAILY [facility] Last Admin: 05/29/19 11:28 Dose: 20 mg Olanzapine (Zyprexa -) 10 mg PO HS [facility] Last Admin: 05/29/19 22:01 Dose: 10 mg Primidone (Mysoline -) 250 mg PO BID [facility] Last Admin: 05/29/19 22:01 Dose: 250 mg Ranitidine HCl (Zantac -) 150 mg PO DAILY [facility] Last Admin: 05/29/19 11:27 Dose: 150 mg Sumatriptan Succinate (Imitrex -) 50 mg PO Q6H PRN PRN Reason: HEADACHES CBC, BMP 05/16/19 11:40 05/16/19 11:40 Physical exam Constitutional: Yes: No Distress, quiet. Eyes: Yes: Conjunctiva Clear Neck: Yes: Supple Respiratory: Yes: CTA Bilaterally Gastrointestinal: Yes: Soft Edema: No neuro--awake Psych--staring, not talking . Assessment/Plan psych eval and Neurology following awaiting transfer to In patient psych unit-- case sealer having difficulties getting bed -- trying hard - without success continue with meds ct and MRI brain noted-- no new changes Pt has h/o Static encephalopathy Cerebral palsy, seizure disorder-- last episode about 30 years ago as per family - on Primidone - STABLE she has h/o breast CA s/p chemo and Radiation--this is not an active issue She has hypothyroidism which is controlled with synthroid. This episode of hallucinations, paranoia, psychosis is psychiatric She is cleared from Medical side She needs inpatient psychiatric facility for her mental health Pt is on constant supervision for elopement will continue to follow Problem List - Problems (1) HTN (hypertension) Code(s): I10 - ESSENTIAL (PRIMARY) HYPERTENSION (2) Hallucinations Code(s): R44.3 - HALLUCINATIONS, UNSPECIFIED (3) Paranoid Code(s): F22 - DELUSIONAL DISORDERS (4) Seizure Code(s): R56.9 - UNSPECIFIED CONVULSIONS
[2019-05-30] MEDS ORDERED: PT OWN MED DRAWER 7, Y5N ONE (10:25)
[2019-05-30] MEDS: RANITIDINE HCL 150 MG TABLET (FP) PO SCH (10:28)
[2019-05-30] MEDS: NADOLOL 20 MG TABLET (FP) PO SCH (10:29)
[2019-05-30] MEDS: CITALOPRAM HYDROBROMIDE 20 MG TABLET (FP) PO SCH (10:29)
[2019-05-30] MEDS: PRIMIDONE 250 MG TABLET PO SCH ×2 (10:29→21:00)
[2019-05-30] MEDS: OLANZapine 10 MG TABLET PO SCH (21:00)
[2019-05-30] MEDS ORDERED: MELATONIN 1 MG TABLET PO ONE (22:00)
[2019-05-31] MEDS: LEVOTHYROXINE NA 50 MCG TABLET (FP) PO SCH (07:27)
[2019-05-31] MEDS ORDERED: PT OWN MED DRAWER 7, Y5N ONE ×4 (10:31→23:13)
[2019-05-31] MEDS: PRIMIDONE 250 MG TABLET PO SCH ×2 (10:38→21:38)
[2019-05-31] MEDS: RANITIDINE HCL 150 MG TABLET (FP) PO SCH (10:38)
[2019-05-31] MEDS: CITALOPRAM HYDROBROMIDE 20 MG TABLET (FP) PO SCH (10:38)
[2019-05-31] MEDS: NADOLOL 20 MG TABLET (FP) PO SCH (10:38)
--- NOTE | 2019-05-31 13:06 | PN ---
Progress Note (short form) - Note Progress Note: pt seen/ examined discussed with nursing staff/ pts family at bedside pt sitting in chair no distress quiet but not speaking- slept well ate breakfast Unfortunately no transfer to [facility] yet Vital Signs Temp 97.7 F 05/30/19 05:51 Pulse 75 05/30/19 05:51 Resp 18 05/30/19 05:51 BP 126/85 05/30/19 05:51 Pulse Ox 95 05/29/19 21:00 Intake & Output 05/29/19 05/29/19 05/30/19 11:59 23:59 11:59 Intake Total 360 Balance 360 Intake: Oral 360 Other: Voiding Method Toilet Toilet # Unmeasured Voids Void 2 1 1 Bowel Movement No Weight Measurement Method Standing Scale Active Medications Acetaminophen (Tylenol -) 650 mg PO Q6H PRN PRN Reason: PAIN LEVEL 1-5 Last Admin: 05/22/19 19:54 Dose: 650 mg Albuterol Sulfate (Ventolin Hfa Inhaler -) 2 puff IH Q4H PRN PRN Reason: ASTHMA Citalopram Hydrobromide (Celexa -) 20 mg PO DAILY [facility] Last Admin: 05/29/19 11:27 Dose: 20 mg Levothyroxine Sodium (Synthroid -) 50 mcg PO DAILY@0700 [facility] Last Admin: 05/30/19 06:04 Dose: 50 mcg Nadolol (Corgard -) 20 mg PO DAILY [facility] Last Admin: 05/29/19 11:28 Dose: 20 mg Olanzapine (Zyprexa -) 10 mg PO HS [facility] Last Admin: 05/29/19 22:01 Dose: 10 mg Primidone (Mysoline -) 250 mg PO BID [facility] Last Admin: 05/29/19 22:01 Dose: 250 mg Ranitidine HCl (Zantac -) 150 mg PO DAILY [facility] Last Admin: 05/29/19 11:27 Dose: 150 mg Sumatriptan Succinate (Imitrex -) 50 mg PO Q6H PRN PRN Reason: HEADACHES CBC, BMP 05/16/19 11:40 05/16/19 11:40 Physical exam Constitutional: Yes: No Distress, quiet. Eyes: Yes: Conjunctiva Clear Neck: Yes: Supple Respiratory: Yes: CTA Bilaterally Gastrointestinal: Yes: Soft Edema: No neuro--awake Psych--staring, not talking . Assessment/Plan psych eval and Neurology following awaiting transfer to In patient psych unit-- field case manager having difficulties getting bed -- trying hard - without success continue with meds ct and MRI brain noted-- no new changes Pt has h/o Static encephalopathy Cerebral palsy, seizure disorder-- last episode about 30 years ago as per family - on Primidone - STABLE she has h/o breast CA s/p chemo and Radiation--this is not an active issue She has hypothyroidism which is controlled with synthroid. This episode of hallucinations, paranoia, psychosis is psychiatric She is cleared from Medical side She needs inpatient psychiatric facility for her mental health Pt is on constant supervision for elopement will continue to follow Discussed in detail with pts family will order routine labs for tomorrow Problem List - Problems (1) HTN (hypertension) Code(s): I10 - ESSENTIAL (PRIMARY) HYPERTENSION (2) Hallucinations Code(s): R44.3 - HALLUCINATIONS, UNSPECIFIED (3) Paranoid Code(s): F22 - DELUSIONAL DISORDERS (4) Seizure Code(s): R56.9 - UNSPECIFIED CONVULSIONS
[2019-05-31] MEDS: OLANZapine 10 MG TABLET PO SCH (21:38)
[2019-06-01] MEDS: LEVOTHYROXINE NA 50 MCG TABLET (FP) PO SCH (06:47)
[2019-06-01 07:41] LABS: BASO % 0.3 % (0-2.0); EOS % 1.7 % (0-4.5); HEMATOCRIT 40.3 % (32.4-45.2); HEMOGLOBIN 14.1 GM/dL (10.7-15.3); LYMPH % 22.8 % (8-40); MCH 31.5 pg (25.7-33.7); MCHC 34.9 g/dl (32.0-36.0); MEAN CELL VOLUME 90.3 fl (80-96); MEAN PLT VOLUME 8.8 fl (7.5-11.1); MONO % 10.4 % (3.8-10.2); NEUT % 64.8 % (42.8-82.8); RBC 4.47 M/mm3 (3.60-5.2); RDW 12.4 % (11.6-15.6); WHITE BLOOD COUNT 6.3 K/mm3 (4.0-10.0)
[2019-06-01 08:00] LABS: PLATELET COUNT 196 K/MM3 (134-434)
[2019-06-01 08:12] LABS: ALBUMIN 4.1 g/dl (3.4-5.0); BILIRUBIN,TOTAL 0.3 mg/dL (0.2-1); BLOOD UREA NITROGEN 19.7 mg/dL (7-18); CALCIUM 9.3 mg/dL (8.5-10.1); CREATININE 0.6 mg/dL (0.55-1.3); POTASSIUM 3.6 mmol/L (3.5-5.1); TOT PROT 7.3 g/dl (6.4-8.2)
[2019-06-01] MEDS: CITALOPRAM HYDROBROMIDE 20 MG TABLET (FP) PO SCH (09:17)
[2019-06-01] MEDS: PRIMIDONE 250 MG TABLET PO SCH ×2 (09:17→22:12)
[2019-06-01] MEDS: RANITIDINE HCL 150 MG TABLET (FP) PO SCH (09:17)
[2019-06-01] MEDS: NADOLOL 20 MG TABLET (FP) PO SCH (09:17)
--- NOTE | 2019-06-01 11:47 | PN ---
Progress Note (short form) - Note Progress Note: pt seen/ examined Crying spells today On one-to-one sitter Vital Signs Temp 97.6 F 06/01/19 06:00 Pulse 74 06/01/19 06:00 Resp 20 06/01/19 06:00 BP 155/86 06/01/19 06:00 Pulse Ox 98 05/31/19 21:00 Intake & Output 05/31/19 05/31/19 06/01/19 11:59 23:59 11:59 Intake Total 0 0 Output Total 1 Balance 0 -1 Intake: IVPB 0 Oral 0 0 Output: Emesis 1 Other: Voiding Method Toilet Toilet # Unmeasured Voids Void 2 1 Bowel Movement No No Active Medications Acetaminophen (Tylenol -) 650 mg PO Q6H PRN PRN Reason: PAIN LEVEL 1-5 Last Admin: 05/22/19 19:54 Dose: 650 mg Albuterol Sulfate (Ventolin Hfa Inhaler -) 2 puff IH Q4H PRN PRN Reason: ASTHMA Citalopram Hydrobromide (Celexa -) 20 mg PO DAILY [facility] Last Admin: 05/29/19 11:27 Dose: 20 mg Levothyroxine Sodium (Synthroid -) 50 mcg PO DAILY@0700 [facility] Last Admin: 05/30/19 06:04 Dose: 50 mcg Nadolol (Corgard -) 20 mg PO DAILY [facility] Last Admin: 05/29/19 11:28 Dose: 20 mg Olanzapine (Zyprexa -) 10 mg PO HS [facility] Last Admin: 05/29/19 22:01 Dose: 10 mg Primidone (Mysoline -) 250 mg PO BID [facility] Last Admin: 05/29/19 22:01 Dose: 250 mg Ranitidine HCl (Zantac -) 150 mg PO DAILY [facility] Last Admin: 05/29/19 11:27 Dose: 150 mg Sumatriptan Succinate (Imitrex -) 50 mg PO Q6H PRN PRN Reason: HEADACHES CBC, BMP 06/01/19 07:10 06/01/19 07:10 Physical exam Constitutional: Yes: No Distress, crying Eyes: Yes: Conjunctiva Clear Neck: Yes: Supple Respiratory: Yes: CTA Bilaterally Gastrointestinal: Yes: Soft Edema: No neuro--awake Psych--crying spells/not communicative Assessment/Plan awaiting transfer to In patient psych unit-- leather case finisher having difficulties getting bed -- trying hard - without success continue with meds ct and MRI brain noted-- no new changes Pt has h/o Static encephalopathy Cerebral palsy, seizure disorder-- last episode about 30 years ago as per family - on Primidone - STABLE she has h/o breast CA s/p chemo and Radiation--this is not an active issue She has hypothyroidism which is controlled with synthroid. This episode of hallucinations, paranoia, psychosis is psychiatric She is cleared from Medical side She needs inpatient psychiatric facility for her mental health Pt is on constant supervision for elopement will continue to follow Problem List - Problems (1) HTN (hypertension) Code(s): I10 - ESSENTIAL (PRIMARY) HYPERTENSION (2) Hallucinations Code(s): R44.3 - HALLUCINATIONS, UNSPECIFIED (3) Paranoid Code(s): F22 - DELUSIONAL DISORDERS (4) Seizure Code(s): R56.9 - UNSPECIFIED CONVULSIONS
[2019-06-01] MEDS ORDERED: LORazepam 1 MG TABLET PO ONE (12:15)
[2019-06-01] MEDS ORDERED: PT OWN MED DRAWER 7, Y5N ONE (20:28)
[2019-06-01] MEDS: OLANZapine 10 MG TABLET PO SCH (22:12)
[2019-06-02] MEDS: LEVOTHYROXINE NA 50 MCG TABLET (FP) PO SCH (07:57)
[2019-06-02] MEDS ORDERED: LORazepam 2 MG/ML SDV VIAL IM ONE (09:35)
--- NOTE | 2019-06-02 09:37 | PN ---
Progress Note (short form) - Note Progress Note: agitated crying spells Vital Signs Temp 98 F 06/01/19 20:48 Pulse 74 06/01/19 20:48 Resp 20 06/01/19 21:00 BP 131/74 06/01/19 20:48 Pulse Ox 98 06/01/19 21:00 Intake & Output 06/01/19 06/01/19 06/02/19 11:59 23:59 11:59 Intake Total 0 Output Total 1 Balance -1 Intake: IVPB 0 Oral 0 Output: Emesis 1 Other: Voiding Method Toilet # Unmeasured Voids Void 1 2 1 Bowel Movement No No No Active Medications Acetaminophen (Tylenol -) 650 mg PO Q6H PRN PRN Reason: PAIN LEVEL 1-5 Last Admin: 05/22/19 19:54 Dose: 650 mg Albuterol Sulfate (Ventolin Hfa Inhaler -) 2 puff IH Q4H PRN PRN Reason: ASTHMA Citalopram Hydrobromide (Celexa -) 20 mg PO DAILY [facility] Last Admin: 06/01/19 09:17 Dose: 20 mg Levothyroxine Sodium (Synthroid -) 50 mcg PO DAILY@0700 [facility] Last Admin: 06/02/19 07:57 Dose: 50 mcg Lorazepam (Ativan Injection -) 2 mg IM ONCE ONE Stop: 06/02/19 09:36 Nadolol (Corgard -) 20 mg PO DAILY [facility] Last Admin: 06/01/19 09:17 Dose: 20 mg Olanzapine (Zyprexa -) 10 mg PO HS [facility] Last Admin: 06/01/19 22:12 Dose: 10 mg Primidone (Mysoline -) 250 mg PO BID [facility] Last Admin: 06/01/19 22:12 Dose: 250 mg Ranitidine HCl (Zantac -) 150 mg PO DAILY [facility] Last Admin: 06/01/19 09:17 Dose: 150 mg Sumatriptan Succinate (Imitrex -) 50 mg PO Q6H PRN PRN Reason: HEADACHES CBC, BMP 06/01/19 07:10 06/01/19 07:10 Physical exam Constitutional: Yes: No Distress, crying/ agitated limited exam - due to pts cooperation lungs- cler neuro--awake Psych--crying spells/not communicative Assessment/Plan awaiting transfer to In patient psych unit-- field nurse case manager having difficulties getting bed -- trying hard - without success continue with meds Ativan 2 mg i/m x 1 dose psych follow up discussed with nursing staff also Problem List - Problems (1) HTN (hypertension) Code(s): I10 - ESSENTIAL (PRIMARY) HYPERTENSION (2) Hallucinations Code(s): R44.3 - HALLUCINATIONS, UNSPECIFIED (3) Paranoid Code(s): F22 - DELUSIONAL DISORDERS (4) Seizure Code(s): R56.9 - UNSPECIFIED CONVULSIONS
[2019-06-02] MEDS: RANITIDINE HCL 150 MG TABLET (FP) PO SCH (09:57)
[2019-06-02] MEDS: NADOLOL 20 MG TABLET (FP) PO SCH (09:57)
[2019-06-02] MEDS: CITALOPRAM HYDROBROMIDE 20 MG TABLET (FP) PO SCH (09:58)
[2019-06-02] MEDS: PRIMIDONE 250 MG TABLET PO SCH ×2 (09:58→21:32)
--- NOTE | 2019-06-02 09:59 | PN ---
Progress Note (short form) - Note Progress Note: Patient seen for Psych follow up, case discussed with staff and registered nurse hh case manager. Patient had been acutely Psychotic with severe behaviour and affective lability and aggression. Attempting to fall off the BED. Responding poorly to current Psych meds. Plans to transfer Patient to In Patient Psych have been futile so far. MS: alert, yelling, screaming, crying, attempting to jump out of the Bed. Patient appears to be responding to inner stimulus. Unable to respond to Verbal requests Poor impulse control and poor judgment. IMP: Acute Psychotic episode.with attept self damaging behaviour. REC: 1) ativan 2mg im stat. 2) haldol Decanoate 12.5mg IM in addition to Zyprexa. 3) Patient requires In Patient Psych admission .
[2019-06-02] MEDS ORDERED: HALOPERIDOL DECANOATE 100 MG/ML IM ONE (10:06)
[2019-06-02] MEDS ORDERED: PT OWN MED DRAWER 7, Y5N ONE (20:28)
[2019-06-02] MEDS: OLANZapine 10 MG TABLET PO SCH (21:32)
[2019-06-02] MEDS: LORazepam 1 MG TABLET PO PRN (23:15)
[2019-06-03] MEDS: LEVOTHYROXINE NA 50 MCG TABLET (FP) PO SCH (06:46)
--- NOTE | 2019-06-03 10:24 | PN ---
Progress Note (short form) - Note Progress Note: pt is crying, appears depressed no agitated episodes this AM was screaming this AM Vital Signs - 24 hr 06/02/19 06/02/19 06/02/19 17:05 21:00 22:00 Temperature 98.9 F 98.2 F Pulse Rate 67 68 Respiratory 20 20 Rate Blood Pressure 108/69 118/70 O2 Sat by Pulse 98 Oximetry (%) Current Medications Generic Name Dose Route Start Last Admin Trade Name Freq PRN Reason Stop Dose Admin Acetaminophen 650 mg 05/18/19 11:43 05/22/19 19:54 Tylenol - PO 650 mg Q6H PRN Administration PAIN LEVEL 1-5 Albuterol Sulfate 2 puff 05/16/19 21:50 Ventolin Hfa Inhaler - IH Q4H PRN ASTHMA Citalopram Hydrobromide 20 mg 05/28/19 10:00 06/02/19 09:58 Celexa - PO 20 mg DAILY PATRICE Administration Levothyroxine Sodium 50 mcg 05/17/19 07:00 06/03/19 06:46 Synthroid - PO 50 mcg DAILY@0700 PATRICE Administration Lorazepam 2 mg 06/02/19 10:01 06/02/19 23:15 Ativan - PO 2 mg BID PRN Administration ANXIETY Nadolol 20 mg 05/17/19 10:00 06/02/19 09:57 Corgard - PO 20 mg DAILY PATRICE Administration Olanzapine 20 mg 06/02/19 22:00 06/02/19 21:32 Zyprexa - PO 20 mg HS PATRICE Administration Primidone 250 mg 05/16/19 22:00 06/02/19 21:32 Mysoline - PO 250 mg BID PATRICE Administration Ranitidine HCl 150 mg 05/17/19 10:00 06/02/19 09:57 Zantac - PO 150 mg DAILY PATRICE Administration Sumatriptan Succinate 50 mg 05/20/19 14:52 Imitrex - PO Q6H PRN HEADACHES Physical exam Constitutional: Yes: No Distress, quiet Eyes: Yes: Conjunctiva Clear Neck: Yes: Supple Respiratory: Yes: CTA Bilaterally Gastrointestinal: Yes: Soft, NT Edema: No neuro--awake Psych--staring,crying, depressed Assessment/Plan psych eval and Neurology evaluations noted meds adjusted awaiting transfer to In patient psych unit-->efforts futile so far continue with meds ct and MRI brain noted-- no new changes Pt has h/o Static encephalopathy Cerebral palsy, seizure disorder-- last episode about 30 years ago as per family - on Primidone - STABLE she has h/o breast CA s/p chemo and Radiation--this is not an active issue She has hypothyroidism which is controlled with synthroid This episode of hallucinations, paranoia, psychosis is psychiatric She is cleared from Medical side She needs inpatient psychiatric facility for her mental health Pt is on constant supervision for elopement Problem List - Problems (1) Altered mental status Code(s): R41.82 - ALTERED MENTAL STATUS, UNSPECIFIED Qualifiers: Altered mental status type: delirium Qualified Code(s): R41.0 - Disorientation, unspecified (2) HTN (hypertension) Code(s): I10 - ESSENTIAL (PRIMARY) HYPERTENSION (3) Hallucinations Code(s): R44.3 - HALLUCINATIONS, UNSPECIFIED (4) Hypothyroid Code(s): E03.9 - HYPOTHYROIDISM, UNSPECIFIED (5) Paranoid Code(s): F22 - DELUSIONAL DISORDERS (6) Seizure Code(s): R56.9 - UNSPECIFIED CONVULSIONS
[2019-06-03] MEDS ORDERED: PT OWN MED DRAWER 7, Y5N ONE ×3 (10:25→20:53)
[2019-06-03] MEDS: CITALOPRAM HYDROBROMIDE 20 MG TABLET (FP) PO SCH (10:29)
[2019-06-03] MEDS: LORazepam 1 MG TABLET PO PRN ×2 (10:29→21:17)
[2019-06-03] MEDS: RANITIDINE HCL 150 MG TABLET (FP) PO SCH (10:29)
[2019-06-03] MEDS: PRIMIDONE 250 MG TABLET PO SCH ×2 (10:30→21:17)
[2019-06-03] MEDS: NADOLOL 20 MG TABLET (FP) PO SCH (10:30)
[2019-06-03] MEDS ORDERED: HALOPERIDOL DECANOATE 100 MG/ML IM ONE (11:00)
--- NOTE | 2019-06-03 15:06 | EKG ---
Test Reason : Blood Pressure : / mmHG Vent. Rate : 085 BPM Atrial Rate : 085 BPM P-R Int : 140 ms QRS Dur : 080 ms QT Int : 374 ms P-R-T Axes : 025 038 032 degrees QTc Int : 445 ms NORMAL SINUS RHYTHM MINIMAL VOLTAGE CRITERIA FOR LVH, MAY BE NORMAL VARIANT BORDERLINE ECG WHEN COMPARED WITH ECG OF 16-MAY-2019 17:42, T WAVE INVERSION NO LONGER EVIDENT IN ANTERIOR LEADS Confirmed by Kun Rodarte ([id number]) on 06/03/2019 3:06:14 PM Referred By: Confirmed By:Kun Rodarte
[2019-06-03] MEDS: OLANZapine 10 MG TABLET PO SCH (21:16)
[2019-06-04] MEDS: LEVOTHYROXINE NA 50 MCG TABLET (FP) PO SCH (06:09)
[2019-06-04 07:26] VITALS: TEMP 97.6
[2019-06-04] MEDS ORDERED: LORazepam 2 MG/ML SDV VIAL IM ONE (07:30)
[2019-06-04] MEDS: NADOLOL 20 MG TABLET (FP) PO SCH (09:23)
[2019-06-04] MEDS: CITALOPRAM HYDROBROMIDE 20 MG TABLET (FP) PO SCH (09:23)
[2019-06-04] MEDS: PRIMIDONE 250 MG TABLET PO SCH (09:23)
[2019-06-04] MEDS: RANITIDINE HCL 150 MG TABLET (FP) PO SCH (09:23)
--- NOTE | 2019-06-04 10:17 | PN ---
Progress Note (short form) - Note Progress Note: pt is calm no agitated episodes this AM Vital Signs - 24 hr 06/03/19 06/03/19 06/03/19 15:49 17:08 21:00 Temperature 98.4 F 97.7 F Pulse Rate 73 81 Respiratory 20 20 Rate Blood Pressure 105/73 123/80 O2 Sat by Pulse 99 Oximetry (%) 06/03/19 06/04/19 22:00 07:25 Temperature 98.0 F 97.6 F Pulse Rate 86 70 Respiratory 20 20 Rate Blood Pressure 130/84 142/96 O2 Sat by Pulse Oximetry (%) Current Medications Generic Name Dose Route Start Last Admin Trade Name Freq PRN Reason Stop Dose Admin Acetaminophen 650 mg 05/18/19 11:43 05/22/19 19:54 Tylenol - PO 650 mg Q6H PRN Administration PAIN LEVEL 1-5 Albuterol Sulfate 2 puff 05/16/19 21:50 Ventolin Hfa Inhaler - IH Q4H PRN ASTHMA Citalopram Hydrobromide 20 mg 05/28/19 10:00 06/04/19 09:23 Celexa - PO 20 mg DAILY PATRICE Administration Levothyroxine Sodium 50 mcg 05/17/19 07:00 06/04/19 06:09 Synthroid - PO 50 mcg DAILY@0700 PATRICE Administration Lorazepam 2 mg 06/02/19 10:01 06/03/19 21:17 Ativan - PO 2 mg BID PRN Administration ANXIETY Nadolol 20 mg 05/17/19 10:00 06/04/19 09:23 Corgard - PO 20 mg DAILY PATRICE Administration Olanzapine 20 mg 06/02/19 22:00 06/03/19 21:16 Zyprexa - PO 20 mg HS PATRICE Administration Primidone 250 mg 05/16/19 22:00 06/04/19 09:23 Mysoline - PO 250 mg BID PATRICE Administration Ranitidine HCl 150 mg 05/17/19 10:00 06/04/19 09:23 Zantac - PO 150 mg DAILY PATRICE Administration Sumatriptan Succinate 50 mg 05/20/19 14:52 Imitrex - PO Q6H PRN HEADACHES Physical exam Constitutional: Yes: No Distress, quiet Eyes: Yes: Conjunctiva Clear Neck: Yes: Supple Respiratory: Yes: CTA Bilaterally Gastrointestinal: Yes: Soft, NT Edema: No neuro--awake Psych--staring, depressed Assessment/Plan psych eval and Neurology evaluations noted meds adjusted awaiting transfer to In patient psych unit-->possibly [facility] continue with meds ct and MRI brain noted-- no new changes Pt has h/o Static encephalopathy Cerebral palsy, seizure disorder-- last episode about 30 years ago as per family - on Primidone - STABLE she has h/o breast CA s/p chemo and Radiation--this is not an active issue She has hypothyroidism which is controlled with synthroid This episode of hallucinations, paranoia, psychosis is psychiatric She is cleared from Medical side Pt is on constant supervision for elopement Problem List - Problems (1) Altered mental status Code(s): R41.82 - ALTERED MENTAL STATUS, UNSPECIFIED Qualifiers: Altered mental status type: delirium Qualified Code(s): R41.0 - Disorientation, unspecified (2) HTN (hypertension) Code(s): I10 - ESSENTIAL (PRIMARY) HYPERTENSION (3) Hallucinations Code(s): R44.3 - HALLUCINATIONS, UNSPECIFIED (4) Hypothyroid Code(s): E03.9 - HYPOTHYROIDISM, UNSPECIFIED (5) Paranoid Code(s): F22 - DELUSIONAL DISORDERS (6) Seizure Code(s): R56.9 - UNSPECIFIED CONVULSIONS
--- NOTE | 2019-06-04 10:29 | PN ---
Progress Note (short form) - Note Progress Note: Still very delusional , hallucinating with very [poor response to current Psych meds. Has become unmanageable, falling down anf falling off of BEd. Apperas to be hallucinating and responding to inner stimulus. PLan; 1) Continue with current Psychbn meds. 2) Needs In Patient psych admission to further stabilize her Mental styatus.
[2019-06-04 11:09] VITALS: BP 122/56; PULSE 77
[2019-06-04] MEDS: LORazepam 1 MG TABLET PO PRN (12:58)
== END 2019-06-04 13:18 | DRG 885 ==
LOC: JER 10:09 → JERBED 18:04 → J8W 21:29
PROVIDERS: ADMIT Internal Medicine; ATTEND Internal Medicine
DX: F32.3 Major depressive disorder, single episode, severe with psychotic features (principal); G81.90 Hemiplegia, unspecified affecting unspecified side; F23 Brief psychotic disorder; H54.8 Legal blindness, as defined in USA; Z85.3 Personal history of malignant neoplasm of breast; E03.9 Hypothyroidism, unspecified; G43.909 Migraine, unspecified, not intractable, without status migrainosus; G40.909 Epilepsy, unspecified, not intractable, without status epilepticus; G93.89 Other specified disorders of brain; G93.0 Cerebral cysts; K21.9 Gastro-esophageal reflux disease without esophagitis; J45.909 Unspecified asthma, uncomplicated; I10 Essential (primary) hypertension
CPT/HCPCS: 36415; 70450-TC; 70551-TC; 80053; 80164; 80184; 80307; 81003; 82607; 82746; 84443; 85025; 86593; 93005; 93010; 99283-25

== ENCOUNTER 2019-07-13 17:03 | Inpatient (IN) | payer OTHER ==
--- NOTE | 2019-07-13 18:09 | PDOC ---
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 Finch, L breast cancer s/p lumpectomy/XRT/chemo in remission since 2014, presenting with 4 days of altered mental status. Patient was last seen at [facility] in May 2019 for new onset A/V hallucinations related to recent in the family, was evaluated for neurological vs. psychiatric etiology during admission, started on and was deemed psychiatric, transferred to inpatient psych facility [facility] and medical staff there did not believe it be psychiatric either. Evaluated by Dr. Finch 2 weeks ago, increased Depakote to 3x 250mg at bedtime , decreased Clonopin dose to 0.5mg, added Quietapine 50mg and Celexa 10mg at bedtime. CT scan head on 07/02 normal per sister. Last seizure 25 years ago. Per siblings present at bedside, patient has been non-verbal for the last 3 weeks, but suddenly started speaking gibberish 2 days ago and acting out, slamming doors and screaming. Baseline mental status is friendly and comprehensible at baseline, volunteers at [facility]. Patient determined to be speaking in TV show references. Otherwise, sister reports that patient has been eating and drinking well, going to bathroom normally, has some unspecified abdominal pain when she gets agitated, and has developed a new neck rash a day after her EEG at [facility], has allergy to adhesives. Past History - Past Medical History Allergies/Adverse Reactions: Allergies Allergy/AdvReac Type Severity Reaction Status Date / Time povidone-iodine Allergy Severe Rash Verified 07/13/19 17:19 [From Betadine] soap [From Betadine] Allergy Severe Rash Verified 07/13/19 17:19 diphenhydramine HCl Allergy Unknown Verified 07/13/19 17:19 [From Benadryl] carbamazepine [From Tegretol] Allergy STOMACH Verified 07/13/19 17:19 PAIN phenytoin sodium extended Allergy Rash Verified 07/13/19 17:19 [From Dilantin] Home Medications: Ambulatory Orders Primidone [Mysoline] 250 mg PO BID 01/07/15 Albuterol Sulfate [Proair Respiclick] 90 mcg IH PRN PRN 08/24/17 Famotidine [Pepcid -] 20 mg PO DAILY 08/24/17 Fluticasone Prop 0.05% Nasal [Flonase -] 1 - 2 spray NS BID 08/24/17 Cholecalciferol (Vitamin D3) [Vitamin D3] 1,000 unit PO DAILY 05/16/19 Levothyroxine [Synthroid -] 50 mcg PO DAILY@0700 #30 tablet 05/22/19 Nadolol [Corgard -] 20 mg PO DAILY 30 Days #30 tablet 05/22/19 Sumatriptan Succinate [Imitrex -] 50 mg PO Q6H PRN tablet 05/22/19 Citalopram Hydrobromide [Celexa -] 10 mg PO DAILY 07/13/19 Clonazepam 0.5 mg PO BID 07/13/19 Divalproex [Depakote -] 750 mg PO HS 07/13/19 Quetiapine Fumarate [Seroquel -] 50 mg PO HS 07/13/19 Anemia: No Asthma: Yes Cancer: Yes (LEFT BREAST CANCER 10/2014) Cardiac Disorders: No CVA: No COPD: No CHF: No Dementia: No Diabetes: No GI Disorders: Yes (gerd) Disorders: No HTN: No Hypercholesterolemia: No Liver Disease: No Seizures: Yes Thyroid Disease: Yes (Hypothyroidism) Other medical history: legally blind since - Surgical History Abdominal Surgery: No Appendectomy: No Cardiac Surgery: No Cholecystectomy: No Lung Surgery: No Neurologic Surgery: No Orthopedic Surgery: No - Immunization History Immunization Up to Date: Yes - Psycho Social/Smoking Cessation Hx Smoking History: Never smoked Have you smoked in the past 12 months: No Hx Alcohol Use: No Drug/Substance Use Hx: No Substance Use Type: None Hx Substance Use Treatment: No Review of Systems - Review of Systems Able to Perform ROS?: No (confusion and aphasia) *Physical Exam - Vital Signs Last Vital Signs Temp Pulse Resp BP Pulse Ox 89 18 112/84 99 07/13/19 17:15 07/13/19 17:15 07/13/19 17:15 07/13/19 17:15 - Physical Exam General Appearance: Yes: Nourished, Appropriately Dressed, Moderate Distress. No: Disheveled HEENT: positive: EOMI, KATERINE, Normal ENT Inspection, Normal Voice, Symmetrical, Pharynx Normal, Hearing Grossly Normal, Other (no external signs of trauma or injury). negative: Scleral Icterus (R), Scleral Icterus (L), Muffled/Hoarse voice, Pharyngeal Erythema, Tonsillar Exudate, Tonsillar Erythema, Rhinorrhea, Excessive drooling Neck: positive: Trachea midline, Supple, Other (no step-offs or flinching to palpation of neck). negative: Tender, Decreased range of motion, Lymphadenopathy (R), Lymphadenopathy (L) Respiratory/Chest: positive: Lungs Clear, Normal Breath Sounds. negative: Chest Tender, Respiratory Distress, Decreased Breath Sounds, Crackles, Rales, Rhonchi Cardiovascular: positive: Regular Rhythm, Regular Rate. negative: Murmur Gastrointestinal/Abdominal: positive: Normal Bowel Sounds, Tender, Flat, Soft, Other (inspection grossly normal). negative: Guarding, Rebound (RUQ tenderness to palpation) Musculoskeletal: positive: Normal Inspection Extremity: positive: Normal Capillary Refill, Normal Inspection, Normal Range of Motion. negative: Tender, Coldness, Cyanosis Integumentary: positive: Normal Color, Dry, Warm, Erythema, Rash (erythematous paupular lesions ~0.5cm irregular borders distributed along the neck and upper chest, spares shoulders). negative: Jaundice Neurologic: positive: Alert, Respond to painful stimul, Responsive, Other ( follows commands, is compliant with procedures, but responds verbally and fluently in complete sentences but with random flight of ideas, periodically becomes aggresive and begins yelling in a waxing/waning pattern). 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 Patient is confused, disoriented, and speaking in TV references, but is following commands well and seems to understand what providers are saying but is responding with non-sequiturs. Unable to verbalize her condition or give more insight into her symptoms other than pointing at her neck rash and clutching her stomach when agitated. Ddx includes infectious etiology such as UTI vs. PNA, intracranial pathology such as mass given hx breast CA, electrolyte abnormality, adverse drug reaction to Quietapine including rash, worsening of psychiatric condition. Speech patterns are consistent with a Broca aphasia vs. psychological disorder, is following commands and clearly shows evidence of comprehension, but is struggling to give the correct words. Will evaluate for AMS and abd pain via: ECG CBC CMP CP lipase mag PT/INR/aPTT serum preg Depakote level CT Head non/con UA/UC/Utox/Upreg 20G IV placed in R wrist cephalic vein. Considered giving Benadryl for rash, but has known reaction to Benadryl, will re -evaluate after checking prior charts. Evaluated by Dr. Dickson from neurology, recommended labs, Depakote level, hold quietapine given possible drug reaction that is causing rash and AMS, and IM Haldol/Ativan if patient cannot tolerate CT or is aggressive. Will be seen by Dr. Finch in AM. Seroquel held as patient was compliant with labs and CT, was not aggressive towards staff. Alessandra with Psychiatry at bedside, notes that pt still being evaluated medically and will re-evaluate if needed tomorrow. 07/13/19 21:32 CHEM shows K 3.4, will replete. CBC WNL. Valproic Acid 41.3. 07/13/19 22:24 ECG shows SR with short NM, HR 76, QTc 477, no signs of acute pathology CT head shows extensive old infarctions in L [place] territory, no evidence of an acute ischemic lesion at this time or any masses. 07/13/19 22:39 Sent rapid strep, will get rectal temp. Spoke to VARINDER Christina about admission to Med-Surg under Dr. Tari Christina Holding off on haldol and ativan as home meds given, 0.5mg Klonopin/150mg Mycoline/750mg Depakote 07/13/19 23:17 Patient getting more agitated with time, will give 5mg Haldol and 2mg Ativan for worsening psychosis per Neuro. Discussed with family, who agree she will never rest at night without assistance , has been awake non-stop for days now. 07/14/19 00:02 Sedation given, patient comfortably asleep, family went home. Re-evaluation of rash, considered GAS-related rash, oropharynx normal. Rapid strep positive, giving Penicillin G IM. Rectal temp 97.9. Discharge - Discharge Information Problems reviewed: Yes Clinical Impression/Diagnosis: Rash of neck Altered mental status Qualifiers: Altered mental status type: delirium Qualified Code(s): R41.0 - Disorientation , unspecified Condition: Stable - Follow up/Referral - Patient Discharge Instructions - Post Discharge Activity
--- NOTE | 2019-07-13 18:10 | CON.NEURO ---
Consult Consult Specialty:: Yessi Referred by:: ER Reason for Consultation:: AMS - History of Present Illness History of Present Illness: 49 year sold woman patient of Dr Finch with [facility] Legally blind Seziure disorder Organic Brain syndrome Hypothyroid Patient sister called me today for Dr Finch that the patient is very agitated and difficulty to control Last seizure was 25 years ago I advised [facility] patient to take extra Klonazepam and see what happen Patient was better for only 15 - 20 min and became agiated again Patient had an extensive course over the past 5 weeks between [facility] Patient had a recent VEEG for 24 hours I called the patient's sister at 5:45 PM patient was brought to [facility] Patient with no seizure very agitated hallucinating Patient was seen in the ER Patient started Sequel and Celexa 10 days ago Rash was noted on her neck - History Source History Provided By: Family Member, Medical Record Limitations to Obtaining History: Clinical Condition - Past Medical History DISPATCHER SERVICE OR WORK: Yes: Migraine, Seizure, Other (mild cogntive impairment) Gastrointestinal: Yes: GERD ...LMP: 03/01/15 - Alcohol/Substance Use Hx Alcohol Use: No - Smoking History Smoking history: Never smoked Have you smoked in the past 12 months: No - Social History Usual Living Arrangement: With Significant Other ADL: Family Assistance Home Medications - Allergies Allergies/Adverse Reactions: Allergies Allergy/AdvReac Type Severity Reaction Status Date / Time povidone-iodine Allergy Severe Rash Verified 07/13/19 17:19 [From Betadine] soap [From Betadine] Allergy Severe Rash Verified 07/13/19 17:19 diphenhydramine HCl Allergy Unknown Verified 07/13/19 17:19 [From Benadryl] carbamazepine [From Tegretol] Allergy STOMACH Verified 07/13/19 17:19 PAIN phenytoin sodium extended Allergy Rash Verified 07/13/19 17:19 [From Dilantin] - Home Medications Home Medications: Ambulatory Orders Primidone [Mysoline] 250 mg PO BID 01/07/15 Albuterol Sulfate [Proair Respiclick] 90 mcg IH PRN PRN 08/24/17 Famotidine [Pepcid -] 20 mg PO DAILY 08/24/17 Fluticasone Prop 0.05% Nasal [Flonase -] 1 - 2 spray NS BID 08/24/17 Cholecalciferol (Vitamin D3) [Vitamin D3] 1,000 unit PO DAILY 05/16/19 Divalproex [Depakote -] 500 mg PO HS 30 Days #30 tablet.ec 05/22/19 Levothyroxine [Synthroid -] 50 mcg PO DAILY@0700 #30 tablet 05/22/19 Nadolol [Corgard -] 20 mg PO DAILY 30 Days #30 tablet 05/22/19 Sumatriptan Succinate [Imitrex -] 50 mg PO Q6H PRN tablet 05/22/19 Citalopram Hydrobromide [Celexa -] 20 mg PO DAILY #60 tablet 06/03/19 LORazepam [Ativan] 2 mg PO BID PRN tablet MDD 2 06/03/19 Olanzapine [ZyPREXA -] 20 mg PO HS #30 tablet 06/03/19 Family Medical History Family History: Unremarkable Review of Systems Unable to obtain ROS, reason: ?? unable to obtain Physical Exam-Neuro Vital Signs: Vital Signs Temperature Pulse Rate 89 07/13/19 17:15 Respiratory Rate 18 07/13/19 17:15 Blood Pressure 112/84 07/13/19 17:15 O2 Sat by Pulse Oximetry (%) 99 07/13/19 17:15 Constitutional: Yes: Well Nourished Neck: Yes: WNL - Neuro Exam Level Of Consciousness: Yes: Alert (confused speaks yes and no does not follow commands ) Cranial Nerves II-XII Intact: Yes (legally blind) Gag: Present Babinski: Present Motor Strength: 2/5: Left Arm, Right Arm, Left Leg, Right Leg Gait: Deferred Problem List - Problems (1) Altered mental status Assessment/Plan: ?? Baseline Currently no clinical Seizure Rule out Toxic metabolic reason vs meds induced alerted mentation 1. Blood work CBC Chem 7 Ceruloplasmin 2. Ativan and Haldol times one IM 3. Head CT no C 4. Depakote level 5. Hold Seroquel 6. Continue Celexa Patient will be seen tomoorw by Dr Dee Thank you Angela Dickson MD Code(s): R41.82 - ALTERED MENTAL STATUS, UNSPECIFIED Qualifiers: Altered mental status type: delirium Qualified Code(s): R41.0 - Disorientation, unspecified
[2019-07-13] MEDS ORDERED: HALOPERIDOL LACTATE 5 MG/ML IM ONE ×2 (18:12→22:32)
[2019-07-13 19:44] LABS: BASO % 0.6 % (0-2.0); EOS % 2.6 % (0-4.5); HEMATOCRIT 42.9 % (32.4-45.2); HEMOGLOBIN 14.5 GM/dL (10.7-15.3); LYMPH % 33.9 % (8-40); MCHC 33.9 g/dl (32.0-36.0); MEAN CELL VOLUME 91.4 fl (80-96); MEAN PLT VOLUME 9.2 fl (7.5-11.1); MONO % 8.3 % (3.8-10.2); NEUT % 54.6 % (42.8-82.8); PLATELET COUNT 246 K/MM3 (134-434); RDW 13.1 % (11.6-15.6); WHITE BLOOD COUNT 5.4 K/mm3 (4.0-10.0)
[2019-07-13 19:50] LABS: INR 1.07 (0.83-1.09); PROTHROMBIN TIME (PATIENT) 12.6 SEC (9.7-13.0)
[2019-07-13 19:53] LABS: ACTIVATED PTT 34.1 SECONDS (25.2-36.5)
--- NOTE | 2019-07-13 21:03 | PDOC ---
Attending Attestation - Resident Resident Name: Donn Roque - ED Attending Attestation I have performed the following: I have examined & evaluated the patient, The case was reviewed & discussed with the resident, I agree w/resident's findings & plan - HPI HPI: 07/13/19 21:02 Pt is not acting like herslef. Making too many references to TV and movies, as per family. - Physicial Exam PE: 07/13/19 21:03 Agree with resident exam - Medical Decision Making 07/13/19 21:03 Labs normal; chem pending Exam normal Head CT pending She will be admitted for neuro eval. 07/13/19 21:03 07/13/19 22:25 Patient Name: DILAN VINSON THIS IS A PRELIMINARY REPORT FROM [employer] EXAM: CT Head wo IMAGES: 136 EXAM DATE AND TIME: 2019-07-13 20:36:18 HISTORY: 49 year old woman: Altered mental status. Evaluate for intracranial hemorrhage or mass. COMPARISON: None TECHNIQUE: Non-contrast axial images were obtained. Coronal and sagittal images were also generated. FINDINGS: There is extensive old infarction in the left posterior cerebral artery vascular territory involving the lateral temporal cortex, occipital cortex and occipital pole. There is exvacuo dilatation of the occipital horn of the left lateral ventricle. There is an old focal infarction is also noted at the right occipital pole cortex. Chronic ischemic changes are also seen within the left frontal lobe white matter, cortex inferior frontal gyrus. The remaining portions of the brain, the cerebral sulci and ventricles are normal in size. Cerebral michael white differentiation is preserved and the remaining portions of the brain. There are no intracranial hemorrhages, extra-axial fluid collections or evidence of an intra-axial mass lesion. Orbital and petrous structures, cerebellopontine angles, and posterior fossa appear unremarkable. There is complete opacification of the left maxillary sinus. The remaining paranasal and mastoid sinuses are clear. 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 The study is otherwise unremarkable. No evidence of an acute ischemic lesion at this time. 07/13/19 22:34 Pt feels febrile; we will get a rectal temoerature. Pt has some abdominal discomfort. she has a red scarlet fever like rash on her neck and trunk; she will get a rapid strep throat culture sent off. 07/13/19 22:34 07/14/19 01:27 Pt has strep; treated with LA BICILLIN. 07/14/19 01:27 Admitted to hospitalist.
[2019-07-13 21:21] LABS: ALK PHOS 59 U/L (45-117); ANION GAP 8 MMOL/L (8-16); BILIRUBIN,TOTAL 0.2 mg/dL (0.2-1); BLOOD UREA NITROGEN 14.2 mg/dL (7-18); CHLORIDE 113 mmol/L (98-107); CO2 24 mmol/L (21-32); CREATININE 0.5 mg/dL (0.55-1.3); GLUCOSE,RANDOM 87 mg/dL (74-106); POTASSIUM 3.4 mmol/L (3.5-5.1); SGOT/AST 9 U/L (15-37); SGPT/ALT 15 U/L (13-61); SODIUM 146 mmol/L (136-145); TOT PROT 5.7 g/dl (6.4-8.2)
[2019-07-13] MEDS ORDERED: DIVALPROEX SODIUM 250 MG TABLET E.C. PO ONE (21:54)
[2019-07-13] MEDS ORDERED: clonazePAM 0.5 MG TABLET PO ONE (21:55)
[2019-07-13] MEDS ORDERED: clonazePAM 0.5 MG TABLET ONE (22:31)
[2019-07-13] MEDS: PRIMIDONE 250 MG TABLET PO SCH (22:47)
[2019-07-13] MEDS ORDERED: POTASSIUM CHLORIDE ORAL LIQUID 20 MEQ/15 ML PO ONE (22:57)
--- NOTE | 2019-07-13 23:01 | HP ---
Admitting History and Physical - Primary Care Physician PCP: Dr. 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 Patient was seen here in May for new onset of hallucination visual and auditory after recent in family was evaluated neurological vs. psychiatric etiology during admission, believed to psychiatric in nature and transferred to inpatient psych facility at [facility]. At [facility] they did not believe it be psychiatric either. Patient was seen by Dr. Finch 2 weeks ago, increased Depakote 750mg at bedtime , decreased klonopin dose to 0.5mg, added Quietapine 50mg and Celexa 10mg at bedtime. Last CT scan head on 07/02 normal, and recent VEEG for 24 hours negative per family. Last seizure activity was 25 years ago. Patient is noted with new rash over the neck which is new ? allergies to adhesives tape. Per family patient has been non-verbal for the last 3 weeks, but suddenly started speaking gibberish (reference TV shows) for past 2 days ago, increase agitation slamming doors and screaming. Baseline volunteers at [facility] friendly in nature. 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) Cardiovascular: Yes: HTN Gastrointestinal: Yes: GERD ...LMP: 03/01/15 Heme/Onc: Yes: Cancer (left breast CA- triple negative), Other (early stage triple negative left breast cancer, 1.5cm, T1c, poorly differentiated) Endocrine: Yes: Hypothyroidism - Past Surgical History Additional Past Surgical History: L breast cancer s/p lumpectomy/XRT/chemo in remission since 2014 - Smoking History Smoking history: Never smoked Have you smoked in the past 12 months: No - Alcohol/Substance Use Hx Alcohol Use: No History of Substance Use: reports: None - Social History ADL: Family Assistance History of Recent Travel: No Home Medications - Allergies Allergies/Adverse Reactions: Allergies Allergy/AdvReac Type Severity Reaction Status Date / Time povidone-iodine Allergy Severe Rash Verified 07/13/19 17:19 [From Betadine] soap [From Betadine] Allergy Severe Rash Verified 07/13/19 17:19 diphenhydramine HCl Allergy Unknown Verified 07/13/19 17:19 [From Benadryl] carbamazepine [From Tegretol] Allergy STOMACH Verified 07/13/19 17:19 PAIN phenytoin sodium extended Allergy Rash Verified 07/13/19 17:19 [From Dilantin] - Home Medications Home Medications: Ambulatory Orders Primidone [Mysoline] 250 mg PO BID 01/07/15 Albuterol Sulfate [Proair Respiclick] 90 mcg IH PRN PRN 08/24/17 Famotidine [Pepcid -] 20 mg PO DAILY 08/24/17 Fluticasone Prop 0.05% Nasal [Flonase -] 1 - 2 spray NS BID 08/24/17 Cholecalciferol (Vitamin D3) [Vitamin D3] 1,000 unit PO DAILY 05/16/19 Levothyroxine [Synthroid -] 50 mcg PO DAILY@0700 #30 tablet 05/22/19 Nadolol [Corgard -] 20 mg PO DAILY 30 Days #30 tablet 05/22/19 Sumatriptan Succinate [Imitrex -] 50 mg PO Q6H PRN tablet 05/22/19 Citalopram Hydrobromide [Celexa -] 10 mg PO DAILY 07/13/19 Clonazepam 0.5 mg PO BID 07/13/19 Divalproex [Depakote -] 750 mg PO HS 07/13/19 Quetiapine Fumarate [Seroquel -] 50 mg PO HS 07/13/19 Family Medical History Family History: Unable to Obtain Review of Systems Unable to obtain ROS, reason: AMS Physical Examination Vital Signs: Vital Signs Temperature Pulse Rate 89 07/13/19 17:15 Respiratory Rate 18 07/13/19 17:15 Blood Pressure 112/84 07/13/19 17:15 O2 Sat by Pulse Oximetry (%) 99 07/13/19 17:15 Constitutional: Yes: Anxious, Mild Distress Eyes: Yes: Conjunctiva Clear, EOM Intact HENT: Yes: Atraumatic, Normocephalic Neck: Yes: Supple, Trachea Midline Cardiovascular: Yes: Regular Rate and Rhythm Respiratory: Yes: Regular, CTA Bilaterally Gastrointestinal: Yes: Normal Bowel Sounds, Soft Musculoskeletal: Yes: WNL Extremities: Yes: WNL Edema: No Neurological: Yes: Confusion, Other (Random speech ( refernce TV shows), periodically becomes aggresive and yells) Labs: CBC, BMP 07/13/19 18:45 07/13/19 20:00 Imaging - Results Cat Scan: Report Reviewed (CT head shows extensive old infarctions in L TRAFFIC CLERK territory, no evidence of an acute ischemic lesion at this time or any masses.) EKG: Report Reviewed (ECG shows SR with short [place], no signs of acute pathology) Other: Report Reviewed (Group A strep rapid ( positive ) Chem K: 3.4 Cbc: wnl Valproic Acid 41.3.) Problem List - Problems (1) Group A streptococcal infection Code(s): B95.0 - STREPTOCOCCUS, GROUP A, CAUSING DISEASES CLASSD ELSWHR (2) Altered mental status Code(s): R41.82 - ALTERED MENTAL STATUS, UNSPECIFIED Qualifiers: Altered mental status type: delirium Qualified Code(s): R41.0 - Disorientation, unspecified (3) Rash of neck Code(s): R21 - RASH AND OTHER NONSPECIFIC SKIN ERUPTION (4) Seizure Code(s): R56.9 - UNSPECIFIED CONVULSIONS (5) GERD (gastroesophageal reflux disease) Code(s): K21.9 - GASTRO-ESOPHAGEAL REFLUX DISEASE WITHOUT ESOPHAGITIS (6) HTN (hypertension) Code(s): I10 - ESSENTIAL (PRIMARY) HYPERTENSION (7) Hypothyroid Code(s): E03.9 - HYPOTHYROIDISM, UNSPECIFIED Assessment/Plan 49 yeard old female with PMHx of organic brain syndrome, 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 #AMS ECG: shows SR with short [place], no signs of acute pathology CT head:Extensive old infarctions in the left posterior cerebral artery vascular territory, and also seen scattered in the left cerebral lateral prefrontal cortex and insular cortex. No evidence of an acute ischemic lesion at this time. - patient agitated in ED and without asleep for days, given haldol and ativan in ED - will relief resting now - monitor for acute behavioral, agitation episode, if noted will consider ativan PRN - Neurology saw patient in ED, will follow up in AM # Group A strep Rapid strep positive rectal temp: 97.9 - given Penicillin G in ED - monitor vitals - tylenol q 6 hr PRN - will continue with amoxicillin 500mg TID for 10 days - if need ID follow up consider consult in AM # Hypokalemia - CHEM shows K+: 3.4,repleted in ED - follow up BMP in AM # Seizure - Primidone [Mysoline] 250 mg PO BID - Divalproex 750 mg PO HS - Citalopram Hydrobromide 10 mg PO DAILY - Clonazepam 0.5 mg PO BID - HOLD Quetiapine Fumarate 50 mg PO HS - seizure precaution # HTN - Nadolol 20 mg PO DAILY - stable, monitor BP #GERD - Famotidine 20 mg PO DAILY # Hypothyroidism - Levothyroxine 50 mcg PO DAILY - follow up TSH Visit type - Emergency Visit Emergency Visit: Yes ED Registration Date: 07/13/19 Care time: The patient presented to the Emergency Department on the above date and was hospitalized for further evaluation of their emergent condition. - New Patient This patient is new to me today: Yes Date on this admission: 07/14/19 - Critical Care Critical Care patient: No
[2019-07-13] MEDS ORDERED: LORazepam 2 MG/ML SDV VIAL ONE (23:17)
[2019-07-13] MEDS ORDERED: HALOPERIDOL LACTATE 5 MG/ML ONE (23:17)
[2019-07-14] MEDS ORDERED: PENICILLIN G BENZATHINE 1,200,000 UNIT/2 ML PFS IM ONE ×2 (00:06→00:40)
[2019-07-14 00:38] LABS: LIPASE 154 U/L (73-393); MAGNESIUM 1.6 mg/dL (1.8-2.4)
[2019-07-14] MEDS ORDERED: AMOXICILLIN 500 MG CAPSULE (FP) ONE (04:53)
[2019-07-14] MEDS ORDERED: LEVOTHYROXINE NA 25 MCG TABLET (FP) ONE (04:53)
[2019-07-14 05:37] LABS: HEMATOCRIT 41.5 % (32.4-45.2); MCH 31.4 pg (25.7-33.7); MCHC 33.7 g/dl (32.0-36.0); MEAN CELL VOLUME 93.4 fl (80-96); MEAN PLT VOLUME 8.5 fl (7.5-11.1); PLATELET COUNT 189 K/MM3 (134-434); RBC 4.44 M/mm3 (3.60-5.2); RDW 13.1 % (11.6-15.6); WHITE BLOOD COUNT 5.5 K/mm3 (4.0-10.0)
[2019-07-14 06:12] LABS: BLOOD UREA NITROGEN 17.7 mg/dL (7-18); CALCIUM 8.7 mg/dL (8.5-10.1); CREATININE 0.6 mg/dL (0.55-1.3); POTASSIUM 4.2 mmol/L (3.5-5.1)
[2019-07-14] MEDS: LEVOTHYROXINE NA 50 MCG TABLET (FP) PO SCH (07:30)
[2019-07-14] MEDS: AMOXICILLIN 500 MG CAPSULE (FP) PO SCH ×3 (07:30→22:01)
[2019-07-14 08:23] LABS: PH,URINE 7.5 (5.0-8.0); URINE APPEARANCE Clear; URINE BILIRUBIN Negative (NEGATIVE); URINE COLOR Yellow; URINE GLUCOSE (UA) Negative (NEGATIVE); URINE KETONE Negative (NEGATIVE); URINE LEUK ESTERASE Negative (NEGATIVE); URINE NITRITE Negative (NEGATIVE); URINE PROTEIN Negative (NEGATIVE); URINE UROBILINOGEN 0.2 mg/dL (0.2-1.0)
[2019-07-14 08:37] LABS: COCAINE, UR NEGATIVE ng/ml (CUTOFF=300); METHADONE, UR NEGATIVE ng/ml (CUTOFF=300); OPIATES, URI NEGATIVE ng/ml (CUTOFF=300); PHENCYCLIDINE,URINE NEGATIVE ng/ml (CUTOFF=25); URINE AMPHETAMINES NEGATIVE ng/ml (CUTOFF=500); URINE BENZODIAZEPINES NEGATIVE ng/ml (CUTOFF=200)
[2019-07-14 08:38] LABS: URINE BARBITURATES POSITIVE ng/ml (CUTOFF=200)
[2019-07-14] MEDS ORDERED: clonazePAM 0.5 MG TABLET ONE (09:09)
[2019-07-14] MEDS: clonazePAM 0.5 MG TABLET PO SCH ×2 (09:21→22:03)
--- NOTE | 2019-07-14 10:19 | EKG ---
Test Reason : Blood Pressure : / mmHG Vent. Rate : 076 BPM Atrial Rate : 076 BPM P-R Int : 094 ms QRS Dur : 090 ms QT Int : 424 ms P-R-T Axes : 027 058 039 degrees QTc Int : 477 ms SINUS RHYTHM WITH SHORT PA OTHERWISE NORMAL ECG WHEN COMPARED WITH ECG OF 03-JUN-2019 11:38, PA INTERVAL HAS DECREASED Confirmed by SURAJ PUENTE MD ([id number]) on 07/14/2019 10:19:20 AM Referred By: Confirmed By:SURAJ PUENTE MD
[2019-07-14] MEDS: NADOLOL 20 MG TABLET (FP) PO SCH (10:33)
[2019-07-14] MEDS: CITALOPRAM HYDROBROMIDE 20 MG TABLET (FP) PO SCH (10:33)
[2019-07-14] MEDS: HEPARIN NA (PORCINE) 5,000 UNITS/ML 1ML VIAL SQ SCH ×2 (10:33→21:19)
[2019-07-14] MEDS: PRIMIDONE 250 MG TABLET PO SCH ×3 (10:34→21:17)
[2019-07-14] MEDS: RANITIDINE HCL 150 MG TABLET (FP) PO SCH (10:34)
--- NOTE | 2019-07-14 14:08 | PN ---
Progress Note (short form) - Note Progress Note: NEUROLOGY PROGRESS: Events reviewed. Coverage from Dr. Dickson greatly appreciated. This 49 yo RH woman is well known with cerebral palsy, complex-partial seizures , migraine headaches and depression with psychosis. (last seen 07/03/19 in office ) PMHX: hypothyroid, hx breast CA On: depakote ER 750 mg HS, nadolol 20 mg po daily (for migraines), primidone 250 mg BID, clonazepam 0.5 mg BID, quetiapine 25 mg HS, citalopram 10 mg qam. Recent 24 H ambulatory EEG done at [facility] in evaluation of seizures showed no active seizure activity. Now presents to ED for 3 days of "gibberish" speech per sister. Pt unable to provide cogent history at this time. Head CT (reviewed): Unchanged B/L chronic right and left parieto-occiptal encephalomalacia. WBC = 5.5; TSH= 5.20; VPA= 41.3%; Group A strep (+)- on Amoxicillin PO. Tox screen 07/14 neg for benzos, pos for barbiturates CURTIS: BP 112/84, p 89; T 97.9, uticaria/rash to R neck NEURO: Sedated, staring. Speech sparse, dysarthric, moaning. Follows commands but distracted. CNII-CNXII: +Nystagmus. Motor: No drift or tremor. Strength normal. Reflexes normal. Toes downgoing. Coordinationm: No FTN dystaxia. Sensation: Feels vibration. Gait: deferred Impression: Cerebral Palsy Seizure disorder - quiescent Migraine Headaches Depression with psychotic features Worsened by Toxic-Metabolic Encephalopathy (strep throat, ? drug reaction, +/- benzodiazepine withdrawal) Suggest: Continue antibiotics and hydration Avoid oversedation. Suggest quetiapine 25 mg TID prn vs. Haldol. Continue depakote ER 750 mg po HS and Nadolol 20 mg po daily for migraine prevention Continue primidone 250 mg BID "Resume" clonazepam 0.5 mg q12H Psychiatry consultation, please. Thank you very much, Michael Finch MD
--- NOTE | 2019-07-14 14:33 | PN ---
Progress Note (short form) - Note Progress Note: pt seen/ examined in er chart reviewed well known to me from previous admission awake/ confused periods of agitiation- calm at present. Vital Signs Temp 97.2 F L 07/14/19 07:30 Pulse 68 07/14/19 09:33 Resp 18 07/14/19 09:33 BP 121/87 07/14/19 09:33 Pulse Ox 99 07/14/19 09:33 Intake & Output 07/13/19 07/14/19 07/14/19 23:59 11:59 23:59 Output Total 900 Balance -900 Weight 125 lb Output: Urine 900 Void 900 Other: Voiding Method Toilet Height 5 ft 2 in Body Mass Index (BMI) 22.8 Active Medications Acetaminophen (Tylenol -) 650 mg PO Q6H PRN PRN Reason: PAIN OR FEVER Amoxicillin (Amoxicillin -) 500 mg PO TID [facility] Last Admin: 07/14/19 07:30 Dose: 500 mg Citalopram Hydrobromide (Celexa -) 10 mg PO DAILY [facility] Last Admin: 07/14/19 10:33 Dose: 10 mg Clonazepam (Klonopin -) 0.5 mg PO BID [facility] Last Admin: 07/14/19 09:21 Dose: 0.5 mg Divalproex Sodium (Depakote -) 750 mg PO [facility] Heparin Sodium (Porcine) (Heparin -) 5,000 unit SQ BID [facility] Last Admin: 07/14/19 10:33 Dose: 5,000 unit Levothyroxine Sodium (Synthroid -) 50 mcg PO DAILY@0700 [facility] Last Admin: 07/14/19 07:30 Dose: 50 mcg Nadolol (Corgard -) 20 mg PO DAILY [facility] Last Admin: 07/14/19 10:33 Dose: 20 mg Primidone (Mysoline -) 250 mg PO BID [facility] Last Admin: 07/14/19 10:34 Dose: 250 mg Ranitidine HCl (Zantac -) 150 mg PO DAILY [facility] Last Admin: 07/14/19 10:34 Dose: 150 mg CBC, BMP 07/14/19 05:16 07/14/19 05:16 strep- A +ve Physical Examination Constitutional: Yes: Anxious, Eyes: Yes: Conjunctiva Clear, EOM Intact HENT: Yes: Atraumatic, Normocephalic. mild congestion Neck: Yes: Supple, Trachea Midline. + ve tender Anterior Lymphadenopathy Cardiovascular: Yes: Regular Rate and Rhythm Respiratory: Yes: Regular, CTA Bilaterally Gastrointestinal: Yes: Normal Bowel Sounds, Soft Edema: No Neurological: Yes: Confusion, Other (Random speech ( reference TV shows), periodically becomes aggressive and yells) Imaging - Results Cat Scan: Report Reviewed (CT head shows extensive old infarctions in L GRADING MACHINE FEEDER territory, no evidence of an acute ischemic lesion at this time or any masses.) EKG: Report Reviewed (ECG shows SR with short [place], no signs of acute pathology) Other: Report Reviewed (Group A strep rapid ( positive ) Chem K: 3.4 Cbc: wnl Valproic Acid 41.3.) Problem List - Problems (1) Group A streptococcal infection Code(s): B95.0 - STREPTOCOCCUS, GROUP A, CAUSING DISEASES CLASSD ELSWHR (2) Altered mental status Code(s): R41.82 - ALTERED MENTAL STATUS, UNSPECIFIED Qualifiers: Altered mental status type: delirium Qualified Code(s): R41.0 - Disorientation, unspecified (3) Rash of neck Code(s): R21 - RASH AND OTHER NONSPECIFIC SKIN ERUPTION (4) Seizure Code(s): R56.9 - UNSPECIFIED CONVULSIONS (5) GERD (gastroesophageal reflux disease) Code(s): K21.9 - GASTRO-ESOPHAGEAL REFLUX DISEASE WITHOUT ESOPHAGITIS (6) HTN (hypertension) Code(s): I10 - ESSENTIAL (PRIMARY) HYPERTENSION (7) Hypothyroid Code(s): E03.9 - HYPOTHYROIDISM, UNSPECIFIED Assessment/Plan 49 yeard old female with PMHx of organic brain syndrome, 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 #AMS/ Toxic Metabolic Encephalopathy With Psychotic features Spoke with Dr. Castañeda -- will follow Neuro following # Group A strep Rapid strep positive - given Penicillin G in ED - monitor vitals - tylenol q 6 hr PRN - will continue with amoxicillin 500mg TID for 10 days Droplet Precautions - # Hypokalemia -MONITOR # Seizure Disorder Recent EEG ok as per family # HTN - Nadolol 20 mg PO DAILY - stable, monitor BP #GERD - Famotidine 20 mg PO DAILY # Hypothyroidism - Levothyroxine 50 mcg PO DAILY - follow up TSH D/w pts family/ RN Also Will follow Problem List - Problems (1) Toxic metabolic encephalopathy Code(s): G92 - TOXIC ENCEPHALOPATHY (2) Altered mental status Code(s): R41.82 - ALTERED MENTAL STATUS, UNSPECIFIED Qualifiers: Altered mental status type: delirium Qualified Code(s): R41.0 - Disorientation, unspecified (3) Group A streptococcal infection Code(s): B95.0 - STREPTOCOCCUS, GROUP A, CAUSING DISEASES CLASSD ELSWHR (4) Rash of neck Code(s): R21 - RASH AND OTHER NONSPECIFIC SKIN ERUPTION (5) Breast CA Code(s): C50.919 - MALIGNANT NEOPLASM OF UNSP SITE OF UNSPECIFIED FEMALE BREAST Qualifiers: Laterality: left Qualified Code(s): C50.912 - Malignant neoplasm of unspecified site of left female breast (6) GERD (gastroesophageal reflux disease) Code(s): K21.9 - GASTRO-ESOPHAGEAL REFLUX DISEASE WITHOUT ESOPHAGITIS (7) Hallucinations Code(s): R44.3 - HALLUCINATIONS, UNSPECIFIED (8) Hypothyroid Code(s): E03.9 - HYPOTHYROIDISM, UNSPECIFIED
[2019-07-14 17:01] VITALS: BMI 23.1
[2019-07-14] MEDS ORDERED: PT OWN MED DRAWER 7, Y5N ONE (18:13)
[2019-07-14] MEDS ORDERED: DIVALPROEX SODIUM 500 MG TABLET E.C. PO SCH (22:00)
[2019-07-14] MEDS: DIVALPROEX *ER* 500 MG, DIVALPROEX *ER* 250 MG PO SCH (22:03)
[2019-07-15] MEDS: AMOXICILLIN 500 MG CAPSULE (FP) PO SCH ×3 (06:37→21:26)
[2019-07-15] MEDS: LEVOTHYROXINE NA 50 MCG TABLET (FP) PO SCH (06:37)
[2019-07-15] MEDS ORDERED: PT OWN MED DRAWER 7, Y5N ONE ×3 (09:17→18:08)
[2019-07-15] MEDS: NADOLOL 20 MG TABLET (FP) PO SCH (09:24)
[2019-07-15] MEDS: clonazePAM 0.5 MG TABLET PO SCH ×2 (09:24→21:26)
[2019-07-15] MEDS: RANITIDINE HCL 150 MG TABLET (FP) PO SCH (09:24)
[2019-07-15] MEDS: CITALOPRAM HYDROBROMIDE 20 MG TABLET (FP) PO SCH (09:25)
[2019-07-15] MEDS: PRIMIDONE 250 MG TABLET PO SCH ×2 (09:25→21:26)
[2019-07-15] MEDS: HEPARIN NA (PORCINE) 5,000 UNITS/ML 1ML VIAL SQ SCH ×2 (09:25→21:27)
--- NOTE | 2019-07-15 12:45 | PN ---
Progress Note (short form) - Note Progress Note: Pt has periods of agitation and crying episodes Walking around the halls Vital Signs - 24 hr 07/14/19 07/14/19 07/14/19 15:24 16:46 16:52 Temperature 98.6 F Pulse Rate 88 Pulse Rate [ 63 Apical] Respiratory 20 18 Rate Blood Pressure 124/79 Blood Pressure 107/78 [Left Arm] O2 Sat by Pulse 100 98 Oximetry (%) 07/14/19 07/14/19 07/15/19 17:48 21:00 07:14 Temperature 98.4 F 98.4 F Pulse Rate 70 68 Pulse Rate [ Apical] Respiratory 18 20 Rate Blood Pressure 118/74 142/78 Blood Pressure [Left Arm] O2 Sat by Pulse 98 Oximetry (%) Current Medications Generic Name Dose Route Start Last Admin Trade Name Freq PRN Reason Stop Dose Admin Acetaminophen 650 mg 07/14/19 00:34 Tylenol - PO Q6H PRN PAIN OR FEVER Amoxicillin 500 mg 07/14/19 06:00 07/15/19 06:37 Amoxicillin - PO 500 mg TID PATRICE Administration Citalopram Hydrobromide 20 mg 07/15/19 12:31 Celexa - PO DAILY PATRICE Clonazepam 0.5 mg 07/14/19 10:00 07/15/19 09:24 Klonopin - PO 0.5 mg BID PATRICE Administration Divalproex Sodium 500 mg/ 750 mg 07/14/19 22:00 07/14/19 22:03 Divalproex Sodium 250 mg PO 750 mg HS PATRIEC Administration Heparin Sodium (Porcine) 5,000 unit 07/14/19 10:00 07/15/19 09:25 Heparin - SQ 5,000 unit BID PATRICE Administration Levothyroxine Sodium 50 mcg 07/14/19 07:00 07/15/19 06:37 Synthroid - PO 50 mcg DAILY@0700 PATRICE Administration Nadolol 20 mg 07/14/19 10:00 07/15/19 09:24 Corgard - PO 20 mg DAILY PATRICE Administration Primidone 250 mg 07/14/19 10:00 07/15/19 09:25 Mysoline - PO 250 mg BID PATRICE Administration Ranitidine HCl 150 mg 07/14/19 10:00 07/15/19 09:24 Zantac - PO 150 mg DAILY PATRICE Administration Physical Examination Constitutional: Yes: Anxious, Eyes: Yes: Conjunctiva Clear, EOM Intact HENT: Yes: Atraumatic, Normocephalic. mild congestion Neck: Yes: Supple, Trachea Midline. + ve tender Anterior Lymphadenopathy Cardiovascular: Yes: Regular Rate and Rhythm Respiratory: Yes: Regular, CTA Bilaterally Gastrointestinal: Yes: Normal Bowel Sounds, Soft Edema: No Neurological: Yes: Confusion, Other (Random speech ( reference TV shows), periodically becomes aggressive and yells) Imaging - Results Cat Scan: Report Reviewed (CT head shows extensive old infarctions in L CHINESE MEDICINE PRACTITIONER territory, no evidence of an acute ischemic lesion at this time or any masses.) EKG: Report Reviewed (ECG shows SR with short [place], no signs of acute pathology) Other: Report Reviewed (Group A strep rapid ( positive ) Chem K: 3.4 Cbc: wnl Valproic Acid 41.3.) Problem List - Problems (1) Group A streptococcal infection Code(s): B95.0 - STREPTOCOCCUS, GROUP A, CAUSING DISEASES CLASSD ELSWHR (2) Altered mental status Code(s): R41.82 - ALTERED MENTAL STATUS, UNSPECIFIED Qualifiers: Altered mental status type: delirium Qualified Code(s): R41.0 - Disorientation, unspecified (3) Rash of neck Code(s): R21 - RASH AND OTHER NONSPECIFIC SKIN ERUPTION (4) Seizure Code(s): R56.9 - UNSPECIFIED CONVULSIONS (5) GERD (gastroesophageal reflux disease) Code(s): K21.9 - GASTRO-ESOPHAGEAL REFLUX DISEASE WITHOUT ESOPHAGITIS (6) HTN (hypertension) Code(s): I10 - ESSENTIAL (PRIMARY) HYPERTENSION (7) Hypothyroid Code(s): E03.9 - HYPOTHYROIDISM, UNSPECIFIED Assessment/Plan 49 yeard old female with PMHx of organic brain syndrome, 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 #AMS/ Toxic Metabolic Encephalopathy With Psychotic features Spoke with Dr. Castañeda -- will follow Neuro following # Group A strep Rapid strep positive - given Penicillin G in ED - monitor vitals - tylenol q 6 hr PRN - will continue with amoxicillin 500mg TID for 10 days Droplet Precautions - # Seizure Disorder Recent EEG ok as per family on Valproate # depression -- increase Celexa Psych eval pending # HTN - Nadolol 20 mg PO DAILY - stable, monitor BP #GERD - Famotidine 20 mg PO DAILY # Hypothyroidism - Levothyroxine 50 mcg PO DAILY - TSH noted D/w pts family/ RN Also-->will need intermediate placements-- they will be looking for intermediate placement-- they are unable to care for her at home Will follow
[2019-07-15] MEDS ORDERED: DIVALPROEX NA *ER* EXTEND REL 250 MG TABLET.SA ONE (20:32)
[2019-07-15] MEDS ORDERED: DIVALPROEX NA *ER* EXTEND REL 500 MG TABLET.SA (FP) ONE (20:32)
[2019-07-15] MEDS: DIVALPROEX *ER* 500 MG, DIVALPROEX *ER* 250 MG PO SCH (21:26)
[2019-07-16] MEDS: AMOXICILLIN 500 MG CAPSULE (FP) PO SCH ×3 (06:12→22:50)
[2019-07-16] MEDS: LEVOTHYROXINE NA 50 MCG TABLET (FP) PO SCH (06:12)
[2019-07-16] MEDS: ONDANSETRON 4 MG/2 ML VIAL IVPUSH PRN (11:02)
[2019-07-16] MEDS: HEPARIN NA (PORCINE) 5,000 UNITS/ML 1ML VIAL SQ SCH ×2 (11:03→22:51)
[2019-07-16] MEDS: CITALOPRAM HYDROBROMIDE 20 MG TABLET (FP) PO SCH (11:50)
[2019-07-16] MEDS: clonazePAM 0.5 MG TABLET PO SCH ×2 (11:51→22:50)
[2019-07-16] MEDS: NADOLOL 20 MG TABLET (FP) PO SCH (11:51)
[2019-07-16] MEDS: RANITIDINE HCL 150 MG TABLET (FP) PO SCH (11:52)
[2019-07-16] MEDS: PRIMIDONE 250 MG TABLET PO SCH ×2 (11:52→22:50)
--- NOTE | 2019-07-16 12:55 | PN ---
Progress Note (short form) - Note Progress Note: Pt has periods of agitation and crying episodes Walking around the halls now vomiting multiple times today making no sense says she hurts when I palpate her abdomen Vital Signs - 24 hr 07/15/19 07/15/19 07/15/19 14:00 16:30 20:30 Temperature 97.9 F 97.5 F L 98.2 F Pulse Rate 67 78 80 Respiratory 18 20 18 Rate Blood Pressure 116/71 139/94 122/87 O2 Sat by Pulse 99 Oximetry (%) 07/15/19 07/15/19 07/15/19 21:00 22:43 22:44 Temperature 97.8 F 97.8 F Pulse Rate 77 77 Respiratory 16 16 Rate Blood Pressure 135/87 135/87 O2 Sat by Pulse 99 Oximetry (%) 07/16/19 07:39 Temperature 97.5 F L Pulse Rate 72 Respiratory 20 Rate Blood Pressure 142/95 O2 Sat by Pulse Oximetry (%) Current Medications Generic Name Dose Route Start Last Admin Trade Name Freq PRN Reason Stop Dose Admin Acetaminophen 650 mg 07/14/19 00:34 Tylenol - PO Q6H PRN PAIN OR FEVER Amoxicillin 500 mg 07/14/19 06:00 07/16/19 06:12 Amoxicillin - PO 500 mg TID PATRICE Administration Citalopram Hydrobromide 20 mg 07/16/19 10:00 07/16/19 11:50 Celexa - PO 20 mg DAILY PATRICE Administration Clonazepam 0.5 mg 07/14/19 10:00 07/16/19 11:51 Klonopin - PO 0.5 mg BID PATRICE Administration Divalproex Sodium 500 mg/ 750 mg 07/14/19 22:00 07/15/19 21:26 Divalproex Sodium 250 mg PO 750 mg HS PATRICE Administration Heparin Sodium (Porcine) 5,000 unit 07/14/19 10:00 07/16/19 11:03 Heparin - SQ 5,000 unit BID PATRICE Administration Levothyroxine Sodium 50 mcg 07/14/19 07:00 07/16/19 06:12 Synthroid - PO 50 mcg DAILY@0700 PATRICE Administration Nadolol 20 mg 07/14/19 10:00 07/16/19 11:51 Corgard - PO 20 mg DAILY PATRICE Administration Ondansetron HCl 4 mg 07/16/19 10:36 07/16/19 11:02 Zofran Injection IVPUSH 4 mg Q4H PRN Administration NAUSEA AND/OR VOMITING Primidone 250 mg 07/14/19 10:00 07/16/19 11:52 Mysoline - PO 250 mg BID PATRICE Administration Ranitidine HCl 150 mg 07/14/19 10:00 07/16/19 11:52 Zantac - PO 150 mg DAILY PATRICE Administration Laboratory Results - last 24 hr 07/13/19 21:14 Ceruloplasmin 19.6 Physical Examination Constitutional: Yes: Anxious, Eyes: Yes: Conjunctiva Clear, EOM Intact HENT: Yes: Atraumatic, Normocephalic. mild congestion Neck: Yes: Supple, Trachea Midline. + ve tender Anterior Lymphadenopathy Cardiovascular: Yes: Regular Rate and Rhythm Respiratory: Yes: Regular, CTA Bilaterally Gastrointestinal: Yes: Normal Bowel Sounds, Soft Edema: No Neurological: Yes: Confusion, Other (Random speech ( reference TV shows), periodically becomes aggressive and yells) Imaging - Results Cat Scan: Report Reviewed (CT head shows extensive old infarctions in L AUTOMATIC FANCY MACHINE OPERATOR territory, no evidence of an acute ischemic lesion at this time or any masses.) EKG: Report Reviewed (ECG shows SR with short [place], no signs of acute pathology) Other: Report Reviewed (Group A strep rapid ( positive ) Chem K: 3.4 Cbc: wnl Valproic Acid 41.3.) Problem List - Problems (1) Group A streptococcal infection Code(s): B95.0 - STREPTOCOCCUS, GROUP A, CAUSING DISEASES CLASSD ELSR (2) Altered mental status Code(s): R41.82 - ALTERED MENTAL STATUS, UNSPECIFIED Qualifiers: Altered mental status type: delirium Qualified Code(s): R41.0 - Disorientation, unspecified (3) Rash of neck Code(s): R21 - RASH AND OTHER NONSPECIFIC SKIN ERUPTION (4) Seizure Code(s): R56.9 - UNSPECIFIED CONVULSIONS (5) GERD (gastroesophageal reflux disease) Code(s): K21.9 - GASTRO-ESOPHAGEAL REFLUX DISEASE WITHOUT ESOPHAGITIS (6) HTN (hypertension) Code(s): I10 - ESSENTIAL (PRIMARY) HYPERTENSION (7) Hypothyroid Code(s): E03.9 - HYPOTHYROIDISM, UNSPECIFIED Assessment/Plan 49 yeard old female with PMHx of organic brain syndrome, 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 #AMS/ Toxic Metabolic Encephalopathy With Psychotic features Spoke with Dr. Castañeda -- will follow Neuro following ABD PAIN ,Vomiting -- liquid diet for now -- zofran as needed -- iv fluids -- check fua xray # Group A strep Rapid strep positive - given Penicillin G in ED - monitor vitals - tylenol q 6 hr PRN - will continue with amoxicillin 500mg TID for 10 days Droplet Precautions - # Seizure Disorder Recent EEG ok as per family on Valproate # depression -- increase Celexa Psych eval pending # HTN - Nadolol 20 mg PO DAILY - stable, monitor BP #GERD - Famotidine 20 mg PO DAILY # Hypothyroidism - Levothyroxine 50 mcg PO DAILY - TSH noted D/w pts family/ RN Also-->will need detention placements-- they will be looking for detention placement-- they are unable to care for her at home Will follow
[2019-07-16] MEDS: D5-1/2NS+20 MEQ KCL - 20 MEQ/1,000 ML INFUS.BAG IV SCH (14:43)
[2019-07-16] MEDS ORDERED: DIVALPROEX NA *ER* EXTEND REL 500 MG TABLET.SA (FP) ONE (22:04)
[2019-07-16] MEDS ORDERED: DIVALPROEX NA *ER* EXTEND REL 250 MG TABLET.SA ONE (22:04)
[2019-07-16] MEDS: DIVALPROEX *ER* 500 MG, DIVALPROEX *ER* 250 MG PO SCH (22:51)
[2019-07-17] MEDS: ONDANSETRON 4 MG/2 ML VIAL IVPUSH PRN ×3 (03:59→13:44)
[2019-07-17] MEDS: D5-1/2NS+20 MEQ KCL - 20 MEQ/1,000 ML INFUS.BAG IV SCH ×3 (06:28→20:11)
[2019-07-17] MEDS: LEVOTHYROXINE NA 50 MCG TABLET (FP) PO SCH (06:29)
[2019-07-17] MEDS: AMOXICILLIN 500 MG CAPSULE (FP) PO SCH ×2 (06:29→21:11)
[2019-07-17] MEDS: ACETAMINOPHEN 325 MG TABLET (FP) PO PRN ×2 (08:54→13:44)
[2019-07-17] MEDS: NADOLOL 20 MG TABLET (FP) PO SCH (10:43)
[2019-07-17] MEDS: clonazePAM 0.5 MG TABLET PO SCH ×2 (10:43→21:10)
[2019-07-17] MEDS: CITALOPRAM HYDROBROMIDE 20 MG TABLET (FP) PO SCH (10:43)
[2019-07-17] MEDS: RANITIDINE HCL 150 MG TABLET (FP) PO SCH (10:43)
[2019-07-17] MEDS: HEPARIN NA (PORCINE) 5,000 UNITS/ML 1ML VIAL SQ SCH ×2 (10:43→21:12)
[2019-07-17] MEDS: PRIMIDONE 250 MG TABLET PO SCH ×2 (10:43→21:11)
--- NOTE | 2019-07-17 10:51 | PN ---
Progress Note (short form) - Note Progress Note: Pt has periods of agitation and crying episodes no further vomiting but feeling nauseous says her stomach hurts no diarrhea Vital Signs - 24 hr 07/16/19 07/16/19 07/16/19 14:00 16:30 18:10 Temperature 97.6 F 97.6 F 97.5 F L Pulse Rate 57 L 54 L Respiratory 20 20 17 Rate Blood Pressure 141/86 124/83 123/79 O2 Sat by Pulse Oximetry (%) 07/16/19 07/16/19 07/16/19 18:38 21:00 21:06 Temperature 98.2 F Pulse Rate 58 L Respiratory 17 17 Rate Blood Pressure 104/75 O2 Sat by Pulse 97 99 Oximetry (%) 07/17/19 07/17/19 07:37 08:58 Temperature 97.6 F 97.6 F Pulse Rate 69 70 Respiratory 20 18 Rate Blood Pressure 129/82 119/74 O2 Sat by Pulse Oximetry (%) Current Medications Generic Name Dose Route Start Last Admin Trade Name Freq PRN Reason Stop Dose Admin Acetaminophen 650 mg 07/14/19 00:34 07/17/19 08:54 Tylenol - PO 650 mg Q6H PRN Administration PAIN OR FEVER Amoxicillin 500 mg 07/14/19 06:00 07/17/19 06:29 Amoxicillin - PO 500 mg TID [facility] Administration Citalopram Hydrobromide 20 mg 07/16/19 10:00 07/17/19 10:43 Celexa - PO 20 mg DAILY [facility] Administration Clonazepam 0.5 mg 07/14/19 10:00 07/17/19 10:43 Klonopin - PO 0.5 mg BID [facility] Administration Divalproex Sodium 500 mg/ 750 mg 07/14/19 22:00 07/16/19 22:51 Divalproex Sodium 250 mg PO 750 mg HS [facility] Administration Heparin Sodium (Porcine) 5,000 unit 07/14/19 10:00 07/17/19 10:43 Heparin - SQ 5,000 unit BID [facility] Administration Potassium Chloride/Dextrose/Sod Cl 20 meq in 1,000 mls @ 83 mls/hr 07/16/19 13 :00 07/17/19 06:28 D5-1/2ns+20 Meq Kcl - IV 83 mls/hr ASDIR [facility] Administration Levothyroxine Sodium 50 mcg 07/14/19 07:00 07/17/19 06:29 Synthroid - PO 50 mcg DAILY@0700 [facility] Administration Nadolol 20 mg 07/14/19 10:00 07/17/19 10:43 Corgard - PO 20 mg DAILY [facility] Administration Ondansetron HCl 4 mg 07/16/19 10:36 07/17/19 07:56 Zofran Injection IVPUSH 4 mg Q4H PRN Administration NAUSEA AND/OR VOMITING Primidone 250 mg 07/14/19 10:00 07/17/19 10:43 Mysoline - PO 250 mg BID [facility] Administration Ranitidine HCl 150 mg 07/14/19 10:00 07/17/19 10:43 Zantac - PO 150 mg DAILY [facility] Administration Physical Examination Constitutional: Yes: Anxious, Eyes: Yes: Conjunctiva Clear, EOM Intact HENT: Yes: Atraumatic, Normocephalic. mild congestion Neck: Yes: Supple, Trachea Midline. 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 in L [employer] territory, no evidence of an acute ischemic lesion at this time or any masses.) EKG: Report Reviewed (ECG shows SR with short [place], no signs of acute pathology) Other: Report Reviewed (Group A strep rapid ( positive ) Chem K: 3.4 Cbc: wnl Valproic Acid 41.3.) Problem List - Problems (1) Group A streptococcal infection Code(s): B95.0 - STREPTOCOCCUS, GROUP A, CAUSING DISEASES CLASSD ELSWHR (2) Altered mental status Code(s): R41.82 - ALTERED MENTAL STATUS, UNSPECIFIED Qualifiers: Altered mental status type: delirium Qualified Code(s): R41.0 - Disorientation, unspecified (3) Rash of neck Code(s): R21 - RASH AND OTHER NONSPECIFIC SKIN ERUPTION (4) Seizure Code(s): R56.9 - UNSPECIFIED CONVULSIONS (5) GERD (gastroesophageal reflux disease) Code(s): K21.9 - GASTRO-ESOPHAGEAL REFLUX DISEASE WITHOUT ESOPHAGITIS (6) HTN (hypertension) Code(s): I10 - ESSENTIAL (PRIMARY) HYPERTENSION (7) Hypothyroid Code(s): E03.9 - HYPOTHYROIDISM, UNSPECIFIED Assessment/Plan 49 yeard old female with PMHx of organic brain syndrome, 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 #AMS/ Toxic Metabolic Encephalopathy With Psychotic features Spoke with Dr. Castañeda -- will follow Neuro following ABD PAIN ,Vomiting -- advance diet -- zofran as needed -- iv fluids --fua xray --> no obstruction -- likley due to po amoxicillin -- decrease to BID dosing -- add Bacid # Group A strep Rapid strep positive - given Penicillin G in ED - monitor vitals - tylenol q 6 hr PRN - will continue with amoxicillin 500mg BiD for 10 days # Seizure Disorder Recent EEG ok as per family on Valproate # depression -- increase Celexa Psych eval pending # HTN - Nadolol 20 mg PO DAILY - stable, monitor BP #GERD - Famotidine 20 mg PO DAILY # Hypothyroidism - Levothyroxine 50 mcg PO DAILY - TSH noted D/w pts family/ RN Also-->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
[2019-07-17] MEDS: LACTOBACILLUS ACIDOPHILUS 1 TABLET PO SCH (11:19)
--- NOTE | 2019-07-17 19:45 | PN ---
Progress Note (short form) - Note Progress Note: neurology progress: Events reviewed and discussed with MICHAEL Rizvi and the Pt's sister, Latisha, at the bedside. Pt is less sedated and , according to Latisha, was "Nearly back to her normal self" this AM. However, this evening (now19:30) patient is again extremely disorganized, agitated and possibly, hallucinating. EXAM: Poor attention but no obvious seizure activity. Follows commands and names objects. Disorganized. Flight of ideas. Mild B/L motor findings (unchanged). IMP: Static encephalopathy (CP) Seizure disorder- probably quiescent Psychosis/depression Suggest: Access and correct thyroid functions Continue Primidone 250 BD and Depakote 750 qHS (level = 44 ug%) Continue clonazepam 0.5 mg but increase to q 8 hrs (psychotic features may be due to benzodiazepine withdrawal-see my last note). Continue citalopram 20 mg while awaiting psychiatry consultation from Dr. Castañeda D/C nadolol Try Quetiapine 50 mg q HS. Thank you very much, Michael Finch MD
[2019-07-17] MEDS ORDERED: DIVALPROEX NA *ER* EXTEND REL 250 MG TABLET.SA ONE (21:05)
[2019-07-17] MEDS ORDERED: DIVALPROEX NA *ER* EXTEND REL 500 MG TABLET.SA (FP) ONE (21:06)
[2019-07-17] MEDS: DIVALPROEX *ER* 500 MG, DIVALPROEX *ER* 250 MG PO SCH (21:12)
[2019-07-17] MEDS ORDERED: QUEtiapine FUMARATE 25 MG TABLET (FP) PO SCH (22:00)
[2019-07-18] MEDS: clonazePAM 0.5 MG TABLET PO SCH ×2 (06:15→13:38)
[2019-07-18] MEDS: LEVOTHYROXINE NA 50 MCG TABLET (FP) PO SCH (06:15)
[2019-07-18] MEDS ORDERED: LEVOTHYROXINE NA 75 MCG TABLET (FP) PO SCH (09:48)
[2019-07-18] MEDS: RANITIDINE HCL 150 MG TABLET (FP) PO SCH (10:18)
[2019-07-18] MEDS: CITALOPRAM HYDROBROMIDE 20 MG TABLET (FP) PO SCH (10:18)
[2019-07-18] MEDS: ACETAMINOPHEN 325 MG TABLET (FP) PO PRN (10:18)
[2019-07-18] MEDS: AMOXICILLIN 500 MG CAPSULE (FP) PO SCH (10:18)
[2019-07-18] MEDS: PRIMIDONE 250 MG TABLET PO SCH (10:18)
[2019-07-18] MEDS: LACTOBACILLUS ACIDOPHILUS 1 TABLET PO SCH (10:18)
[2019-07-18] MEDS: HEPARIN NA (PORCINE) 5,000 UNITS/ML 1ML VIAL SQ SCH (10:18)
[2019-07-18] MEDS: D5-1/2NS+20 MEQ KCL - 20 MEQ/1,000 ML INFUS.BAG IV SCH (10:20)
--- NOTE | 2019-07-18 10:40 | PN ---
Progress Note (short form) - Note Progress Note: pt seen/ examined chart reviewed Vital Signs Temp 98.0 F 07/18/19 10:00 Pulse 74 07/18/19 10:00 Resp 18 07/18/19 10:00 BP 124/75 07/18/19 10:00 Pulse Ox 96 07/17/19 21:00 Intake & Output 07/17/19 07/17/19 07/18/19 11:59 23:59 11:59 Intake Total 980 332 664 Balance 980 332 664 Intake: IV 980 332 664 D5-1/2NS+20 MEQ KCL - 20 980 332 664 meq In 1,000 ml @ 83 mls/ hr IV ASDIR [facility] Rx#: [id number] Other: Voiding Method Toilet Toilet # Unmeasured Voids Void 2 2 Bowel Movement Yes No # Bowel Movements 2 Weight Measurement Method Standing Scale Active Medications Acetaminophen (Tylenol -) 650 mg PO Q6H PRN PRN Reason: PAIN OR FEVER Last Admin: 07/18/19 10:18 Dose: 650 mg Amoxicillin (Amoxicillin -) 500 mg PO BID [facility] Last Admin: 07/18/19 10:18 Dose: 500 mg Citalopram Hydrobromide (Celexa -) 20 mg PO DAILY [facility] Last Admin: 07/18/19 10:18 Dose: 20 mg Clonazepam (Klonopin -) 0.5 mg PO TID [facility] Last Admin: 07/18/19 06:15 Dose: 0.5 mg Divalproex Sodium 500 mg/ (Divalproex Sodium 250 mg) 750 mg PO HS [facility] Last Admin: 07/17/19 21:12 Dose: 750 mg Heparin Sodium (Porcine) (Heparin -) 5,000 unit SQ BID [facility] Last Admin: 07/18/19 10:18 Dose: 5,000 unit Potassium Chloride/Dextrose/Sod Cl (D5-1/2ns+20 Meq Kcl -) 20 meq in 1,000 mls @ 83 mls/hr IV ASDIR [facility] Last Admin: 07/18/19 10:20 Dose: 83 mls/hr Lactobacillus Acidophilus (Bacid -) 1 tab PO DAILY [facility] Last Admin: 07/18/19 10:18 Dose: 1 tab Levothyroxine Sodium (Synthroid -) 75 mcg PO DAILY@0700 [facility] Ondansetron HCl (Zofran Injection) 4 mg IVPUSH Q4H PRN PRN Reason: NAUSEA AND/OR VOMITING Last Admin: 07/17/19 13:44 Dose: 4 mg Primidone (Mysoline -) 250 mg PO BID [facility] Last Admin: 07/18/19 10:18 Dose: 250 mg Quetiapine Fumarate (Seroquel -) 50 mg PO HS [facility] Last Admin: 07/17/19 21:11 Dose: 50 mg Ranitidine HCl (Zantac -) 150 mg PO DAILY [facility] Last Admin: 07/18/19 10:18 Dose: 150 mg CBC, BMP 07/14/19 05:16 07/14/19 05:16 Increase Synthroid -- 75 mcg Psych consult still pending Will follow ' Problem List - Problems (1) Toxic metabolic encephalopathy Code(s): G92 - TOXIC ENCEPHALOPATHY (2) Altered mental status Code(s): R41.82 - ALTERED MENTAL STATUS, UNSPECIFIED Qualifiers: Altered mental status type: delirium Qualified Code(s): R41.0 - Disorientation, unspecified (3) Group A streptococcal infection Code(s): B95.0 - STREPTOCOCCUS, GROUP A, CAUSING DISEASES CLASSD ELSWHR (4) Rash of neck Code(s): R21 - RASH AND OTHER NONSPECIFIC SKIN ERUPTION (5) Breast CA Code(s): C50.919 - MALIGNANT NEOPLASM OF UNSP SITE OF UNSPECIFIED FEMALE BREAST Qualifiers: Laterality: left Qualified Code(s): C50.912 - Malignant neoplasm of unspecified site of left female breast (6) GERD (gastroesophageal reflux disease) Code(s): K21.9 - GASTRO-ESOPHAGEAL REFLUX DISEASE WITHOUT ESOPHAGITIS (7) Hallucinations Code(s): R44.3 - HALLUCINATIONS, UNSPECIFIED (8) Hypothyroid Code(s): E03.9 - HYPOTHYROIDISM, UNSPECIFIED
[2019-07-18 15:17] VITALS: BP 118/66; PULSE 73; TEMP 97.7
--- NOTE | 2019-07-18 15:17 | CON.PSY ---
Psychiatry Consult Chief Complaint: 89 erm[age] old female known to me from previous admission. History of Develomental Disabilty. Scizo affective Disorder admitted with AMS. Symptoms: reports: Impaired Concentration, Racing Thoughts, Delusions, Paranoia - Previous Psychiatric Treatment Outpatient: Less than 6 mos ago Inpatient: None - Previous Substance Abuse Treatment Outpatient: None Inpatient: None - Reason for Previous Treatment Reason for Previous Treatment: Psychotic Episode - Current Medications Current Medications: Active Medications Acetaminophen (Tylenol -) 650 mg PO Q6H PRN PRN Reason: PAIN OR FEVER Last Admin: 07/18/19 10:18 Dose: 650 mg Amoxicillin (Amoxicillin -) 500 mg PO BID [facility] Last Admin: 07/18/19 10:18 Dose: 500 mg Citalopram Hydrobromide (Celexa -) 20 mg PO DAILY [facility] Last Admin: 07/18/19 10:18 Dose: 20 mg Clonazepam (Klonopin -) 0.5 mg PO TID [facility] Last Admin: 07/18/19 13:38 Dose: 0.5 mg Divalproex Sodium 500 mg/ (Divalproex Sodium 250 mg) 750 mg PO [facility] Last Admin: 07/17/19 21:12 Dose: 750 mg Heparin Sodium (Porcine) (Heparin -) 5,000 unit SQ BID [facility] Last Admin: 07/18/19 10:18 Dose: 5,000 unit Potassium Chloride/Dextrose/Sod Cl (D5-1/2ns+20 Meq Kcl -) 20 meq in 1,000 mls @ 83 mls/hr IV ASDIR [facility] Last Admin: 07/18/19 10:20 Dose: 83 mls/hr Lactobacillus Acidophilus (Bacid -) 1 tab PO DAILY [facility] Last Admin: 07/18/19 10:18 Dose: 1 tab Levothyroxine Sodium (Synthroid -) 75 mcg PO DAILY@0700 [facility] Ondansetron HCl (Zofran Injection) 4 mg IVPUSH Q4H PRN PRN Reason: NAUSEA AND/OR VOMITING Last Admin: 07/17/19 13:44 Dose: 4 mg Primidone (Mysoline -) 250 mg PO BID [facility] Last Admin: 07/18/19 10:18 Dose: 250 mg Quetiapine Fumarate (Seroquel -) 50 mg PO HS [facility] Last Admin: 07/17/19 21:11 Dose: 50 mg Ranitidine HCl (Zantac -) 150 mg PO DAILY [facility] Last Admin: 07/18/19 10:18 Dose: 150 mg - Allergies Allergies: Allergies Allergy/AdvReac Type Severity Reaction Status Date / Time povidone-iodine Allergy Severe Rash Verified 07/13/19 17:19 [From Betadine] soap [From Betadine] Allergy Severe Rash Verified 07/13/19 17:19 diphenhydramine HCl Allergy Unknown Verified 07/13/19 17:19 [From Benadryl] carbamazepine [From Tegretol] Allergy STOMACH Verified 07/13/19 17:19 PAIN phenytoin sodium extended Allergy Rash Verified 07/13/19 17:19 [From Dilantin] - Current Living Status Usual Living Arrangement: With Significant Other - Current Mental Status Evaluation Appearance: Well Groomed Attitude: Uncooperative - Affect Affect: Constrictive Appropriateness: Not Appropriate - Mood Mood: Angry - Speech/Language Expressive: Coherent - Psychomotor Activity Psychomotor Activity: Slowed - Thought Process Thought Process: Circumstantial - Thought Content Hallucinations: Absent Delusions: Present Type: Persectory, Bizarre - Self Perception Self Perception: No Impairment - Cognition Attention: Alert Memory, Short Term: 2/3 Memory, Remote with Promptin/3 - Concentration Serial Sevens Intact: No Simple Calculations Intact: No - Abstraction Proverb Interpretation: Impaired Judgement: Moderately Impaired - Insight Insight: Impaired - Impulse Control Impulse Control: Minimally Impaired - Suicidal Ideation Suicidal Ideation: No - Homicidal Ideation Homicidal Ideation: No Assessment/Plan 1) continue with [facility].
--- NOTE | 2019-07-18 16:15 | DS ---
Physical Examination Vital Signs: Vital Signs Temperature 97.7 F 07/18/19 15:16 Pulse Rate 73 07/18/19 15:16 Respiratory Rate 18 07/18/19 15:16 Blood Pressure 118/66 07/18/19 15:16 O2 Sat by Pulse Oximetry (%) 96 07/18/19 09:00 Findings/Remarks: pt seen/ examined chart reviewed comfortable periods of agitation calm at present Constitutional: Yes: No Distress, Calm Eyes: Yes: Conjunctiva Clear Neck: Yes: Supple Cardiovascular: Yes: Regular Rate and Rhythm Respiratory: Yes: CTA Bilaterally Gastrointestinal: Yes: Soft Edema: No Labs: CBC, BMP 07/14/19 05:16 07/14/19 05:16 Discharge Summary Problems reviewed: Yes Reason For Visit: ALTERED MENTAL STATUS Current Active Problems Altered mental status (Acute) Group A streptococcal infection (Acute) Rash of neck (Acute) Toxic metabolic encephalopathy (Acute) Hospital Course: admitted for agitation/ ams/ strep throat treated with abx Neuro/ Psych followed d/c home today d/w rn/ case monitor-- Family to find adult home for her meds reconcilled will give abx 5 more days Rx send to Pharmacy Condition: Stable - Instructions Referrals: Dayan Land MD [Primary Care Provider] - Disposition: HOME - Home Medications Comprehensive Discharge Medication List: Ambulatory Orders Primidone [Mysoline] 250 mg PO BID 01/07/15 Albuterol Sulfate [Proair Respiclick] 90 mcg IH PRN PRN 08/24/17 Famotidine [Pepcid -] 20 mg PO DAILY 08/24/17 Cholecalciferol (Vitamin D3) [Vitamin D3] 1,000 unit PO DAILY 05/16/19 Nadolol [Corgard -] 20 mg PO DAILY 30 Days #30 tablet 05/22/19 Sumatriptan Succinate [Imitrex -] 50 mg PO Q6H PRN tablet 05/22/19 Citalopram Hydrobromide [Celexa -] 10 mg PO DAILY 07/13/19 Clonazepam 0.5 mg PO BID 07/13/19 Divalproex [Depakote -] 750 mg PO HS 07/13/19 Quetiapine Fumarate [Seroquel -] 50 mg PO HS 07/13/19 Acetaminophen [Tylenol .Regular Strength -] 650 mg PO Q6H PRN tablet 07/18/19 Amoxicillin - [Amoxicillin 500mg Capsule -] 500 mg PO BID 5 Days #10 capsule 08/26 Lactobacillus Acidophilus [Bacid -] 1 tab PO DAILY 30 Days #30 tab 07/18/19 Levothyroxine [Synthroid -] 75 mcg PO DAILY@0700 30 Days #30 tablet 07/18/19 Quetiapine Fumarate [Seroquel -] 50 mg PO HS tablet 07/18/19
== END 2019-07-18 17:43 | disposition home or self-care (01) | DRG 152 ==
LOC: JER 17:03 → JERBED 21:06 → J8W 07-14 15:50
PROVIDERS: ADMIT Internal Medicine; ATTEND Internal Medicine
DX: J02.0 Streptococcal pharyngitis (principal); G92 Toxic encephalopathy; F32.3 Major depressive disorder, single episode, severe with psychotic features; H54.8 Legal blindness, as defined in USA; G40.909 Epilepsy, unspecified, not intractable, without status epilepticus; E03.9 Hypothyroidism, unspecified; R41.0 Disorientation, unspecified; Z85.3 Personal history of malignant neoplasm of breast; K21.9 Gastro-esophageal reflux disease without esophagitis; R21 Rash and other nonspecific skin eruption; E87.6 Hypokalemia; G43.909 Migraine, unspecified, not intractable, without status migrainosus
CPT/HCPCS: 36415; 70450-TC; 71045-TC-FY; 74019-TC-FY; 80048; 80053; 80164; 80307; 81003; 82390; 82550; 83690; 83735; 84443; 84484; 84703; 85025; 85027; 85610; 85730; 87077; 87086; 87880; 93005; 93010; 99285-25; J1644

== ENCOUNTER 2021-07-26 19:21 | Emergency (ER) | payer OTHER ==
[2021-07-26 19:28] VITALS: TEMP 99.3; BMI 31.8
[2021-07-26] MEDS ORDERED: SODIUM CHLORIDE 0.9% 500 ML INFUS.BAG IV ONE (23:03)
[2021-07-26] MEDS ORDERED: ONDANSETRON 4 MG/2 ML VIAL IVPUSH ONE (23:03)
[2021-07-26] MEDS ORDERED: ONDANSETRON 4 MG/2 ML VIAL ONE (23:08)
[2021-07-26 23:31] LABS: BASO % 0.4 % (0-2.0); HEMATOCRIT 43.4 % (32.4-45.2); HEMOGLOBIN 14.8 GM/dL (10.7-15.3); LYMPH % 23.3 % (8-40); MCH 30.3 pg (25.7-33.7); MCHC 34.1 g/dl (32.0-36.0); MEAN CELL VOLUME 88.9 fl (80-96); MEAN PLT VOLUME 8.7 fl (7.5-11.1); MONO % 5.8 % (3.8-10.2); NEUT % 70.5 % (42.8-82.8); PLATELET COUNT 259 10^3/uL (134-434); RBC 4.88 M/mm3 (3.60-5.2); RDW 12.9 % (11.6-15.6); WHITE BLOOD COUNT 7.7 K/mm3 (4.0-10.0)
[2021-07-26 23:47] LABS: EPI CELLS 9 /uL (0-25.1); HYALINE CASTS 1 /uL (0-3.1); PH,URINE 7.5 (5.0-8.0); URINE APPEARANCE CLOUDY; URINE BACTERIA 160 /uL (0-1359); URINE BILIRUBIN NEGATIVE (NEGATIVE); URINE COLOR YELLOW; URINE GLUCOSE (UA) NEGATIVE (NEGATIVE); URINE KETONE TRACE (NEGATIVE); URINE LEUK ESTERASE TRACE (NEGATIVE); URINE NITRITE NEGATIVE (NEGATIVE); URINE PROTEIN TRACE (NEGATIVE); URINE RBC 34 /uL (0-23.9); URINE WBC 24 /uL (0-25.8)
[2021-07-27 00:10] LABS: ALBUMIN 4.2 g/dl (3.4-5.0); BLOOD UREA NITROGEN 12.3 mg/dL (7-18); CALCIUM 9.4 mg/dL (8.5-10.1)
[2021-07-27 00:13] LABS: CREATININE 0.7 mg/dL (0.55-1.3)
[2021-07-27 00:15] LABS: BILIRUBIN,TOTAL 0.2 mg/dL (0.2-1); TOT PROT 8.2 g/dl (6.4-8.2)
[2021-07-27 01:08] VITALS: BP 144/99; PULSE 71
== END 2021-07-27 01:09 | disposition home or self-care (01) ==
LOC: JER 19:21
PROC: 3E033GC Introduction of Other Therapeutic Substance into Peripheral Vein, Percutaneous Approach (ICD-10-PCS; principal; 2021-07-26)
DX: R11.2 Nausea with vomiting, unspecified (principal); R19.7 Diarrhea, unspecified
CPT/HCPCS: 36415; 80053; 81003; 85025; 96374; 99284-25; C9803; U0003; U0005

== ENCOUNTER → 2021-08-22 | Day surgery (SDC) | payer OTHER | END | disposition home or self-care (01) | LOC: JRADIR 10:04 | PROVIDERS: ATTEND Internal Medicine Endocrinology, Diabetes & Metabolism | PROC: 0G9H3ZX Drainage of Right Thyroid Gland Lobe, Percutaneous Approach, Diagnostic (ICD-10-PCS; principal; 2021-08-22) | DX: E06.3 Autoimmune thyroiditis (principal) | CPT/HCPCS: 10005; 76942 ==

== ENCOUNTER 2021-08-25 20:46 | Emergency (ER) | payer OTHER ==
[2021-08-25 20:59] VITALS: BP 146/86; PULSE 95; TEMP 99.2; BMI 31.4
[2021-08-25] MEDS ORDERED: methylPREDNISolone NA SUCC 125 MG/2 ML VIAL IVPUSH ONE (21:18)
[2021-08-25] MEDS ORDERED: FAMOTIDINE 20 MG/50 ML IVPB 20 MG/50 ML MG IVPB ONE ×2 (21:18→21:36)
[2021-08-25] MEDS ORDERED: LORATADINE 10 MG TABLET PO ONE (21:31)
[2021-08-25] MEDS ORDERED: methylPREDNISolone NA SUCC 125 MG/2 ML VIAL ONE (21:36)
[2021-08-25] MEDS ORDERED: LORATADINE 10 MG TABLET ONE (21:40)
== END 2021-08-26 01:00 | disposition home or self-care (01) ==
LOC: JER 20:46
PROC: 3E033GC Introduction of Other Therapeutic Substance into Peripheral Vein, Percutaneous Approach (ICD-10-PCS; principal; 2021-08-25)
PROC: 3E033GC Introduction of Other Therapeutic Substance into Peripheral Vein, Percutaneous Approach (ICD-10-PCS; 2021-08-25)
DX: L23.9 Allergic contact dermatitis, unspecified cause (principal)
CPT/HCPCS: 99284-25

== ENCOUNTER 2022-01-05 04:28 | Day surgery (SDC) | payer OTHER ==
[2022-01-02 15:38] VITALS: BMI 31.9
[2022-01-05] MEDS ORDERED: ONDANSETRON 4 MG/2 ML VIAL IVPUSH PRN (10:17)
[2022-01-05] MEDS ORDERED: LACTATED RINGERS SOLUTION 1,000 ML IV SCH (10:30)
[2022-01-05 10:42] VITALS: TEMP 97.8
[2022-01-05 11:18] VITALS: BP 112/74; PULSE 72
== END 2022-01-05 11:40 | disposition home or self-care (01) ==
LOC: JASU-ENDO 04:28
PROVIDERS: ATTEND Internal Medicine Gastroenterology
PROC: 0DB78ZX Excision of Stomach, Pylorus, Via Natural or Artificial Opening Endoscopic, Diagnostic (ICD-10-PCS; 2022-01-05)
PROC: 0DB68ZX Excision of Stomach, Via Natural or Artificial Opening Endoscopic, Diagnostic (ICD-10-PCS; 2022-01-05)
PROC: 0DB98ZX Excision of Duodenum, Via Natural or Artificial Opening Endoscopic, Diagnostic (ICD-10-PCS; principal; 2022-01-05 09:30)
DX: K29.50 Unspecified chronic gastritis without bleeding (principal); K31.819 Angiodysplasia of stomach and duodenum without bleeding
CPT/HCPCS: 88305-TC; 88342-TC

== ENCOUNTER 2022-10-26 04:16 | Day surgery (SDC) | payer OTHER ==
[2022-10-24 10:53] VITALS: BMI 32.1
[2022-10-26 10:06] VITALS: RESP 18
[2022-10-26 10:48] VITALS: BP 146/76; PULSE 67; TEMP 98
== END 2022-10-26 11:10 | disposition home or self-care (01) ==
LOC: JASU-ENDO 04:16
PROVIDERS: ATTEND Internal Medicine Gastroenterology
PROC: 0DBL8ZX Excision of Transverse Colon, Via Natural or Artificial Opening Endoscopic, Diagnostic (ICD-10-PCS; 2022-10-26)
PROC: 0DBP8ZX Excision of Rectum, Via Natural or Artificial Opening Endoscopic, Diagnostic (ICD-10-PCS; 2022-10-26)
PROC: 0DBM8ZX Excision of Descending Colon, Via Natural or Artificial Opening Endoscopic, Diagnostic (ICD-10-PCS; 2022-10-26)
PROC: 0DBK8ZX Excision of Ascending Colon, Via Natural or Artificial Opening Endoscopic, Diagnostic (ICD-10-PCS; principal; 2022-10-26 09:30)
DX: Z12.11 Encounter for screening for malignant neoplasm of colon (principal); K62.89 Other specified diseases of anus and rectum; K64.8 Other hemorrhoids; K62.5 Hemorrhage of anus and rectum; R19.7 Diarrhea, unspecified
CPT/HCPCS: 88305-TC

== ENCOUNTER 2023-08-09 13:40 | Emergency (ER) | payer OTHER ==
[2023-08-09 13:55] VITALS: BP 133/87; PULSE 89; RESP 18; TEMP 98.8; BMI 28.1
[2023-08-09] MEDS ORDERED: ACETAMINOPHEN 500 MG TABLET (FP) PO ONE (15:31)
[2023-08-09] MEDS ORDERED: ACETAMINOPHEN 500 MG TABLET (FP) ONE (15:32)
== END 2023-08-09 15:58 | disposition home or self-care (01) ==
LOC: JER 13:40 → JERFT 13:40 → JER 15:58
DX: M25.552 Pain in left hip (principal)
CPT/HCPCS: 73502-TC-LT-FY

== ENCOUNTER 2024-08-16 12:20 | Emergency (ER) | payer OTHER ==
[2024-08-16 12:27] VITALS: BP 172/93; PULSE 90; RESP 18; TEMP 97.8; BMI 27.1
== END 2024-08-16 17:35 | disposition home or self-care (01) ==
LOC: JERFT 12:20
DX: S39.92XA Unspecified injury of lower back, initial encounter (principal); X50.1XXA Overexertion from prolonged static or awkward postures, initial encounter
CPT/HCPCS: 70450-TC; 72100-TC-FY; 72125-TC; 99284-25